=== PATIENT | male | born 1965 | race Caucasian/White ===

== ENCOUNTER 2025-03-14 14:30 | Inpatient (IN) | payer BC, SELFPAY ==
[2025-03-14] VITALS (17 sets, daily range): BP systolic 103–162; BP diastolic 11–127; BMI 36.6; BMI 33.9
--- NOTE | 2025-03-14 10:38 | ED.GENMED ---
History of Present Illness
General
Chief Complaint: Breathing Problem
Time Seen by Provider: 03/14/25 10:37
History of Present Illness
History of Present Illness:
TIME OF INITIAL ENCOUNTER: 10:40 AM
HPI: The patient has been having cough as well as increasing shortness of breath over the last several days. Of note the patient is found to be in rapid A-fib. He states he is no longer on any medication including no anticoagulation�he took
himself off of medications about 4 years ago. He states that he goes in and out of atrial fibrillation. He also has a chest pressure sensation.
EXAM:
GENERAL: Well appearing in no distress
HEENT: Moist oral mucosa
CARDIOVASCULAR: No murmurs, tachycardic heart rate, irregular rhythm, No chest wall tenderness
PULMONARY: No respiratory distress, breath sounds are equally diminished
ABDOMEN: Soft with no peritoneal signs, no tenderness
NEUROLOGIC: Excellent strength all extremities, no coordination deficits
PSYCHIATRIC: Appropriate mental status, normal insight and judgement
EXTREMITIES: Nontender, mild bilateral lower extremity edema, moves all extremities equally
SKIN: Extensive sunburn noted to the left lower extremity
NUMBER AND COMPLEXITY OF PROBLEMS ADDRESSED AT THE ENCOUNTER
� Chronic conditions affecting care: Has had PE, high blood pressure, hyperlipidemia, diabetes, paroxysmal A-fib
� Acute Exacerbation and/or Progression of Chronic Illness: This is an acute problem
� Differential Diagnosis includes: PE, rapid A-fib, viral syndrome, bronchitis, pneumonia
AMOUNT AND/OR COMPLEXITY OF DATA TO BE REVIEWED AND ANALYZED
� I performed an independent evaluation of and my interpretation is:
EKG: A-fib with ventricular rate of 173, nonspecific ST abnormality, on 11/18/2021 the patient was in sinus rhythm
CT: I personally viewed CT imaging and see bilateral pleural effusions which are relatively small, no PE
X-rays:
Laboratory Studies: CBC unremarkable, chemistries unremarkable however glucose is 217 and total bili is 2.0, troponin 0.025 (higher than prior), BNP 2490 (in 2020 was 186)
Other:
� Review of other/old records: I reviewed records, the patient was admitted with multiple subsegmental PE
� Clinical information was obtained by an independent historian: None needed
� Prescriptions/Medications Considered but not given:
� Further testing considered but not performed:
RISK OF COMPLICATIONS AND/OR MORBIDITY OR MORTALITY OF PATIENT MANAGEMENT
� Social determinants of health affecting care: Lives at home with patient presents with cough or shortness of breath
� Discussion with other providers: Dr. Gee for admission
� Escalation of care including admission/observation vs risk of discharge considered: The patient presents with cough, shortness of breath, and chest tightness. He is found to be in rapid A-fib. He has history of paroxysmal
A-fib as well as PE but no longer on anticoagulation as he took himself off of all medications about 4 years ago. His heart rate initially was in the 170s�she was placed on Cardizem bolus and drip.
ANY OTHER UPDATES:
Patient arrives in rapid A-fib and despite escalating doses of Cardizem, heart rate still remains elevated in the 130s to 140s range. He is otherwise hemodynamically stable with systolics that have remained somewhat hypertensive. BNP is newly
elevated and troponin although normal is higher than prior. [place].
Past History
Past History
ED Past Medical History: HTN, Hypercholesterolemia, NIDDM, Other (Glaucoma), Other (PE) and Other (Hypertension hyperlipidemia glaucoma, chronic back pain, diabetes, DVT)
ED Past Surgical History: Bowel resection
Social History
Tobacco: Non-smoker
Alcohol: Occasional
Drug: None
Personal:
Living: with family
Family History
Family History: Other (Diabetes, glaucoma, prostate cancer, CABG)
Phy Exam
Physical Exam
Physical Exam:
See HPI
Scores
Heart Failure Risk
Heart Failure Risk Score: Not Applicable
Course
Orders/Labs/Results
Orders:
Orders
03/14/25 10:13
Electrocardiogram (*1) Urgent
Reason for Study: Shortness of Breath
03/14/25 10:16
EKG- Treatment ONCE
03/14/25 10:21
COVID-19 Antigen Urgent
Source: Nasal Swab
Complete Blood Count/With Diff Urgent
Comprehensive Metabolic Panel Urgent
Influenza A+B Rapid Molecular Urgent
SE Source: Nasal Swab
Specimen Description:
03/14/25 10:42
CT Chest PE Study Urgent
Comment:
Reason For Exam: sob prior pe
Diltiazem HCl [Cardizem] 10 mg IV NOW STA
03/14/25 10:45
Diltiazem 125 mg/125 ml Nss [Cardizem] 125 mg in 125 ml IV PER PROTOCOL
Initial dose in mg/hr, then titrate:: 5
Titrate to keep:: Heart rate 80-100 bpm
Titrate by mg/hr:: 5 mg/hr
Frequency of titrations (minutes):: 15
Maximum dose in mg/hr:: 15
03/14/25 10:49
NT-proBNP Urgent
Troponin I Urgent
03/14/25 12:31
Furosemide [Lasix] 40 mg IV NOW STA
Abnormal Lab Results
03/14/25
10:21
Lymphocytes % 18.3 L %
(20.5-51.1)
Glucose 217 H mg/dl
(70-99)
Total Bilirubin 2.0 H mg/dl
(0.2-1.3)
03/14/25 10:21
03/14/25 10:21
Vital Signs
Initial and Last Documented VS:
Initial Vital Signs
Temp Pulse Resp BP Pulse Ox
37.0 C 55 18 162/11 98
03/14/25 10:11 03/14/25 10:11 03/14/25 10:11 03/14/25 10:11 03/14/25 10:11
Last Documented Vital Signs
Temp Pulse Resp BP Pulse Ox
37.0 C 135 28 141/127 98
03/14/25 10:11 03/14/25 12:15 03/14/25 12:15 03/14/25 12:00 03/14/25 10:11
*Critical Care Note
Total Time (30-74mins, 75-104mins- exclusive of procedures): Not Applicable
ED Attending Note
-
Portions of this chart may have been created with voice recognition software.� Occasional wrong word or��sound alike� substitutions may have occurred due to the inherent limitations of voice recognition software.
Discharge Plan
Departure
Patient Disposition: Admit
Date of Disposition: 03/14/25
Time of Disposition: 13:00
Presentation/result/management discussed w/ accepting MD/DO: Hospitalist
Patient with high blood pressure during this ER visit?: Yes
Discharge Problem:
Congestive heart failure
Prescriptions:
No Action
latanoprost 1 DROP drops
1 drp OPHTHALMIC HS
atorvastatin 40 MG tablet
40 mg PO QPM
metformin 500 MG tablet
500 mg PO BID
oxycodone-acetaminophen [Percocet] 1 EACH tablet
1 ea PO Q8
baclofen 10 MG tablet
10 mg PO BID
gabapentin 300 MG capsule
300 mg PO HS
timolol [Betimol] 5 ML drops
5 ml OP BID
losartan-hydrochlorothiazide 1 EACH tablet
1 ea PO DAILY
fenofibrate nanocrystallized 145 MG tablet
145 mg PO DAILY
esomeprazole magnesium [Nexium] 20 MG capsule,delayed release(DR/EC)
20 mg PO DAILY Qty: 20 0RF
rivaroxaban [Xarelto DVT-PE Treat 30d Start] 1 EACH tablets,dose pack
1 tab PO DIRECTED 30 Days Qty: 1 0RF
Rx Instructions:
15 mg oral twice per day x 3 weeks then
20 mg oral daily beginning week 4
Referrals:
UNKNOWN - PT DOES,NOT KNOW [Family Provider] -
Interventions
Interventions:
*Risk Screen - Suicide Last Done: 03/14/25 10:11
*General Assessment Last Done: 03/14/25 10:11
ED- Cardiac Assessment Last Done: 03/14/25 10:45
ED- Pulmonary Assessment Last Done: 03/14/25 10:45
Discharge Date and Time
Print Language: ICELANDIC
[2025-03-14 10:45] LABS: % Basophils 0.4 % (0-2); % Eosinophils 0.7 % (0-6); % Immature Granulocytes 0.4 % (0-0.5); % Lymphocytes 18.3 % (20.5-51.1); % Neutrophils 73.2 % (42.2-75.2); Absolute Eosinophils 0.1 10^3/uL (0-0.7); Absolute Lymphocytes 1.6 10^3/uL (1.2-3.4); Absolute Monocytes 0.6 10^3/uL (0.1-0.6); Absolute Neutrophils 6.5 10^3/uL (1.4-6.5); Hematocrit 45.8 % (39.0-52.0); Hemoglobin 15.6 g/dL (13.0-18.0); Mean Corp Hgb Conc. 34.1 g/dL (33.0-37.0); Mean Corpuscular Hgb 29.4 pg (27.0-31.0); Mean Corpuscular Volume 86.3 fL (80.0-94.0); Mean Platelet Volume 9.1 fL (7.4-10.4); Nucleated Red Blood Cells % 0 % (-); Platelet Count 268 10^3/uL (130-400); Red Blood Cell Count 5.31 10^6/uL (4.70-6.10); White Blood Cell Count 8.9 10^3/uL (4.8-10.8)
[2025-03-14] MEDS: CARDIZEM 10 MG IV (10:50)
[2025-03-14] MEDS: CARDIZEM 125 IV ×2 (10:53→20:05)
[2025-03-14 10:56] LABS: ALT (SGPT) 23 U/L (0-50); AST (SGOT) 19 U/L (17-59); Albumin 4.5 g/dl (3.5-5.0); Alkaline Phosphatase 60 U/L (38-126); Blood Urea Nitrogen 13 mg/dl (9-20); Calcium 9.8 mg/dl (8.4-10.2); Carbon Dioxide 26 mmol/L (22-30); Chloride 105 mmol/L (98-107); Estimated Creatinine Clearance 89 ml/min; Glucose 217 mg/dl (70-99); Potassium 4.2 mmol/L (3.5-5.1); Sodium 142 mmol/L (135-145); Total Protein 7.2 g/dl (6.3-8.2); eGFR > 60.00
[2025-03-14 11:00] LABS: COVID-19 Antigen Negative (Negative)
[2025-03-14 11:21] LABS: NT-proBNP 2490 pg/ml; Troponin I 0.025 ng/ml
[2025-03-14] MEDS: LASIX 40 MG IV ×2 (12:46→17:47)
--- NOTE | 2025-03-14 13:07 | HPS.HSE ---
Family Physician
-
Family Physician: NOT KNOW UNKNOWN - PT DOES
Chief Complaint
-
SoB , chest pressure
History of Present Illness
HPI
4M HX PE, DVT, non compliance with meds and Drs follow up, T2DM, HTN, HLD, chr back pain, HX BW resection pw increasing shortness of breath over the last several days.
- at ER, patient is found to be in rapid A-fib.
- He states he is no longer on any medication including no anticoagulation
- he took himself off of medications about 4 years ago.
- He states that he goes in and out of atrial fibrillation.
- He also has a chest pressure sensation.
ERTX
IV lasix 40
IV Diltiazem 10mg now then Diltiazem gtt
Medical History
Past Medical History
Past Medical History: Reports Arrhythmia (in and out of AF per patient ), HTN, Hypercholesterolemia, NIDDM and Other (DVT/PE )
Additional Past Medical History:
HX suggestive of non compliance with Meds and Drs follow up
Past Surgical History: Reports Bowel Resection
Social History
Tobacco: Non-smoker
Alcohol: None
Family History
Family History: Not pertinent
Allergies / Home Medications
Allergies reflects when Allergies were last updated in [employer].
Home Medications with original date entered in [employer]
Allergy/Medication List:
Allergies
Allergy/AdvReac Type Severity Reaction Status Date / Time
No Known Allergies Allergy Verified 10/27/22 07:09
Home Medications
atorvastatin 40 mg tablet 40 mg PO QPM High cholesterol 06/18/19
baclofen 10 mg tablet 10 mg PO BID Muscle spasms 06/18/19
esomeprazole magnesium 20 mg capsule,delayed release (Nexium) 20 mg PO DAILY ##20 06/18/19
fenofibrate nanocrystallized 145 mg tablet 145 mg PO DAILY High cholesterol 06/18/19
gabapentin 300 mg capsule 300 mg PO HS Neurological Condition 06/18/19
latanoprost 0.005 % eye drops 1 drp OPHTHALMIC HS Eye condition 06/18/19
losartan 50 mg-hydrochlorothiazide 12.5 mg tablet 1 ea PO DAILY Blood pressure 06/18/19
metformin 500 mg tablet 500 mg PO BID Diabetes 06/18/19
oxycodone-acetaminophen 10 mg-325 mg tablet (Percocet) 1 ea PO Q8 Pain 06/18/19
timolol 0.25 % eye drops (Betimol) 5 ml OP BID Eye condition 06/18/19
rivaroxaban 15 mg (42)-20 mg (9) tablets in a starter pack (Xarelto DVT-PE Treatment 30-Day Starter) 1 tab PO DIRECTED 30 days ##1 05/16/20
If medication reconciliation has not been performed, why?: Other (pending to reconcile )
Review of Systems
-
Constitutional: Reports No Symptoms
EENT: Reports No Symptoms
Respiratory: Reports See HPI and Trouble Breathing
Cardiac: Reports No Symptoms
Abdomen/GI: Reports No Symptoms
: Reports No Symptoms
Musculoskeletal: Reports No Symptoms
Skin: Reports No Symptoms
Neurological: Reports No Symptoms
Endocrine: Reports No Symptoms
Hematologic/Lymphatic: Reports No Symptoms
Psych: Reports No Symptoms
Physical Exam
Vital Signs
Vital Signs
Temp Pulse Resp BP Pulse Ox
98.6 F 135 28 141/127 98
03/14/25 10:11 03/14/25 12:15 03/14/25 12:15 03/14/25 12:00 03/14/25 10:11
Physical Exam
General: Well Developed, Well Nourished and No Apparent Distress
HEENT: NormoCephalic, Moist mucous membranes and Atraumatic
Respiratory: Clear
Cardiac: S1/S2 and Regular Rhythm; No Murmur or Rub
GI: Soft, Non Tender, Non Distended and Normal Bowel Sounds; No Organomegaly
Rectal: Deferred by Provider
Musculoskeletal: No Clubbing, No Cyanosis and No Edema
Skin: Rash (well demarcated non tender, normal temp, rash at [employer] and [employer])
Neuro: Nonfocal/grossly intact
Laboratory Results
-
03/14/25 10:21
03/14/25 10:21
Laboratory Results
Total Bilirubin 2.0 mg/dl (0.2-1.3) H 03/14/25 10:21
AST 19 U/L (17-59) 03/14/25 10:21
ALT 23 U/L (0-50) 03/14/25 10:21
Alkaline Phosphatase 60 U/L (38-126) 03/14/25 10:21
Troponin I 0.025 ng/ml 03/14/25 10:49
Data Reviewed
-
Lab Data: Labs Reviewed by me
Old Records: Reviewed
Impression/Plan
-
Vital Signs
Temp Pulse Resp BP Pulse Ox
98.6 F 135 28 141/127 98
03/14/25 10:11 03/14/25 12:15 03/14/25 12:15 03/14/25 12:00 03/14/25 10:11
Data
nl CBC
nl BMP
BG 217
TB 2
TPNI 0.025
BNP 2490
EKG
ATRIAL FIBRILLATION WITH RAPID VENTRICULAR RESPONSE
SEPTAL INFARCT (CITED ON OR BEFORE 18-JUN-2019)
ABNORMAL ECG
WHEN COMPARED WITH ECG OF 18-NOV-2021 14:27,
ATRIAL FIBRILLATION HAS REPLACED SINUS RHYTHM
VENT. RATE HAS INCREASED BY 92 BPM
NONSPECIFIC T WAVE ABNORMALITY NOW EVIDENT IN LATERAL LEADS
Confirmed by MD IBAN, DIONNA Mckeon ([id number]) on 03/14/2025 11:20:09 AM
03/14/25 CT Chest PE Study
1. Negative for pulmonary embolism.
2. Cardiomegaly and moderate CHF with very small bilateral pleural effusions.
05/15/20 TTE
Normal left ventricular systolic function.
Left ventricular ejection fraction is 55-60% Normal regional wall motion.
Trace tricuspid regurgitation.
Trace mitral regurgitation.
Dilated IVC
Estimated PA pressure 35mmHg.
No prior study available for comparison.
Last hospitalist admission: 05/14/2020 - 05/16/2020
ASSESSMENT & PLAN
Pending Rx reconciliation
Acute HF
CT suggest CHF
prior LVEF 55-60 % suspect HFpEF
- Rate control of FAF with diltiazem gtt
- IV Lasix 40 daily
- Daily - Wt, IOs, BMP
- ECHO in AM
- CBC card consult
Fast AF - presumed new onset
Reports in and out of A Fib of uncertain chronicity
No prior EKG evidence of A Fib
Preserved LVEF
Prior HX Xarelto for PE
- HX suggestive of nonadherence to Meds and f/u
- rate control with Diltiazem gtt
- Card to evaluate for OAC ( risks vs benefits)
Borderline abnormal TPNI - suspect NIMI
- Trend TPNI
- c/w STUDENT DEVELOPMENT SPECIALIST Statin
NEG CTC evidence of acute PE
HX PE/DVT
Sun burn at [employer] and [employer]- unlikely cellulitis
- well demarcated rash at [employer] and [employer] being in the Sun with cross legs - non tender, not hot on palpation
Benign HTN
- resume Losartan
- Observe BP
DMT2
nl RFts
- resume metformin
- add ISS low
- f/u A1C
HLD
- resume Atorvastatin and an fenofibrate
Morbid obesity ( BMI 36)
affects all aspects of life
Chr LBP
- resume Gabapentin 300mg HS
- resume Percocet PRN
DVT Px: LMWH
Full code
IP TLM
--- NOTE | 2025-03-14 13:30 | CON.CAR ---
Addendum entered and electronically signed by Jose De Jesus Almaraz MD 03/14/25 15:27:
I saw and examined the patient.
The GASOLINE TRACTOR OPERATOR's note was reviewed and I agree with the note.
Comment: 60 year old male with NIDDM, unprovoked DVT (2012, 2016), unprovoked PE (2019), HTN, HLD, and one episode of atrial fibrillation while in a medically induced coma presented with shortness of breath. He has had progressive cough and what
sounds like PND; as well as abdominal bloating/distension. He was found to be in AF RVR.
- IV diuresis
- Dilt gtt
- Echo tomorrow
Original Note:
Consultation
Consultation Request
Date/Time Consultation Requested: 03/14/2025 13:05
Date/Time Consultation Performed: 03/14/2025 13:30
Requesting Provider: Dr. Gee
Performing Provider: GIL Lehman for Dr. Almaraz
Reason for Consultation: Atrial fibrillation with rapid ventricular response
Medical History
-
Chief Complaint: Shortness of breath
History of Present Illness:
Rob Luz is a 60 year old male with NIDDM, unprovoked DVT (2012, 2016), unprovoked PE (2019), HTN, HLD, and one episode of atrial fibrillation while in a medically induced coma presented with shortness of breath. For approximately 2 weeks he has
had worsening cough. Over the last several days he started having shortness of breath. His cough and breathing is worse lying flat. He denies PND. Imaging with small bilateral pleural effusions. He does not think he has recently gained any
weight. No significant lower extremity edema. He self discontinued his medications approximately 4 years ago. He was found to be in atrial fibrillation with rapid ventricular response. He was started on a diltiazem drip. He was given furosemide
40 mg IV. He is not having any chest pain.
Past Medical History
Past Medical History: Arrhythmias (paroxysmal atrial fibrillation [single episode]), HTN, Hypercholesterolemia, NIDDM and Other (PE)
Past Surgical History: Bowel Resection and Orthopedic
Social History
Tobacco: Non-Smoker
Alcohol: Occasional
Drug: None
Personal:
Living: With Family
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
Family History
Family History: Early CAD (Father with CABG ~55)
Allergies / Home Medications
Allergy/AdvReac Type Severity Reaction Status Date / Time
No Known Allergies Allergy Verified 10/27/22 07:09
�Medication �Instructions �Recorded �Confirmed �Type
atorvastatin 40 mg tablet 40 mg PO QPM High cholesterol 06/18/19 05/13/20 History
baclofen 10 mg tablet 10 mg PO BID Muscle spasms 06/18/19 05/13/20 History
esomeprazole magnesium 20 mg 20 mg PO DAILY ##20 06/18/19 05/13/20 Rx
capsule,delayed release (Nexium)
fenofibrate nanocrystallized 145 145 mg PO DAILY High cholesterol 06/18/19 05/13/20 History
mg tablet
gabapentin 300 mg capsule 300 mg PO HS Neurological Condition 06/18/19 05/13/20 History
latanoprost 0.005 % eye drops 1 drp OPHTHALMIC HS Eye condition 06/18/19 05/13/20 History
losartan 50 mg-hydrochlorothiazide 1 ea PO DAILY Blood pressure 06/18/19 05/13/20 History
12.5 mg tablet
metformin 500 mg tablet 500 mg PO BID Diabetes 06/18/19 05/13/20 History
oxycodone-acetaminophen 10 mg-325 1 ea PO Q8 Pain 06/18/19 05/13/20 History
mg tablet (Percocet)
timolol 0.25 % eye drops (Betimol) 5 ml OP BID Eye condition 06/18/19 05/13/20 History
rivaroxaban 15 mg (42)-20 mg (9) 1 tab PO DIRECTED 30 days ##1 05/16/20 Rx
tablets in a starter pack (Xarelto
DVT-PE Treatment 30-Day Starter)
Review of Systems
-
History Source: Patient
All other systems: Negative unless noted
Constitutional: Fatigue
EENT: No Symptoms
Respiratory: Trouble Breathing
Cardiac: No Symptoms
Abdomen/GI: No Symptoms
: No Symptoms
Musculoskeletal: No Symptoms
Skin: No Symptoms
Neurological: No Symptoms
Endocrine: No Symptoms
Hematologic/Lymphatic: No Symptoms
Physical Exam
Vital Signs
Temp Pulse Resp BP Pulse Ox
98.6 F 135 23 140/96 98
03/14/25 10:11 03/14/25 13:15 03/14/25 13:15 03/14/25 13:00 03/14/25 10:11
Lab Results
03/14/25 10:21
03/14/25 10:21
Troponin I 0.025 ng/ml 03/14/25 10:49
Tmu-Z-Wjwnuswxmwx Pept 2490 pg/ml 03/14/25 10:49
Physical Exam
General: Well Developed, Well Nourished, No Apparent Distress and Comfortable
HEENT: Normocephalic, Anicteric and Moist Mucous Membranes
Respiratory: Clear and Non Labored Respirations
Cardiac: S1/S2 and Irregular Rhythm
Breast: Deferred by me
GI: Soft, Non Tender, Non Distended and Normal Bowel Sounds
Rectal: Deferred by Provider
Genito-urinary: No Costovertebral Tender
Musculoskeletal: No Clubbing and No Cyanosis
Skin: Warm and Dry
Neuro: AO x 3
Hematologic/Lymphatic: No Lymphadenopathy
Psych: Calm
Impression / Plan
-
I/P: 60M with NIDDM, unprovoked DVT (2012, 2016), unprovoked PE (2019), HTN, HLD, and one episode of atrial fibrillation while in a medically induced coma presented with shortness of breath. He was found to be in acute heart failure and in atrial
fibrillation with RVR.
Outpatient extended day teacher: None
Heart failure, type unknown, acute
- Severe requiring admission and management
- Orthopnea, cough, and shortness of breath
- Diuresis with furosemide 40mg IV BID
- Trend daily weight, I/O, and BMP with diuresis
- Echocardiogram when rates are better controlled
- HF education
Atrial fibrillation with rapid ventricular response
- Start Cardizem gtt for rate control
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
- [id number]: score at least 3 (Heart failure, HTN, Diabetes Mellitus)
NIDDM
- With hyperglycemia, self discontinued medications
- Hgba1c 8.1%, consider diabetic education
Hypercholesterolemia
- Fasting lipid panel in a.m.
- Goal LDL <70 given his type 2 diabetes
Prior DVTs, unprovoked (2012, 2016)
Prior PE (2019), self discontinued anticoagulation
Obesity, BMI 36, he would benefit from weight loss
Data Reviewed
-
EKG: Report Reviewed by me (Atrial fibrillation with right ventricular response, rate 173)
Radiology: Report Reviewed by me (CXR: Cardiomegaly and moderate CHF with very small bilateral pleural effusions.)
Labs: Labs Reviewed by me
Old Records: Reviewed
[2025-03-14 15:08] LABS: Glycohemoglobin (HgbA1c) 8.1 % (4.0-5.6)
[2025-03-14] MEDS: LIPITOR 40 MG PO (17:48)
[2025-03-14] MEDS: FLUSH (NSS) 1 FLUSH IV (17:49)
[2025-03-14 17:54] LABS: Glucose - Point of Care 220 mg/dl (70-99)
--- NOTE | 2025-03-14 17:55 | PTCARENOTE ---
patient arrived from ER, ht. and weight completed, oriented to room and surroundings. monitor shows Afib, HR 130's, BP 131/91, denies SOB, cp. lung bowen clear on RA, o2 sat 95%. IV Cardizem @ 15cc/hr via left hand. INT in right ant. flushes well.
patient has trace edema bilat. LE, he has sunburn on left leg. patient c/o headache, Tylenol po given as ordered. BS obtained 220, notified patient that his hgaic was 8.1 and that while he was in the hospital he will be covered with insulin if
needed. CHF folder given to patient, very receptive to learning.
[2025-03-14] MEDS: NOVOLOG FLEXPEN-LOW RESISTANCE 2 UNITS SC (18:20)
[2025-03-14 18:37] LABS: Troponin I 0.027 ng/ml
[2025-03-14] MEDS: ELIQUIS 5 MG PO (19:51)
[2025-03-14] MEDS: TIMOPTIC 0.25% OPHTHALMIC SOLUTION 1 DROP BOTH EYES (19:59)
[2025-03-14 22:33] LABS: Glucose - Point of Care 165 mg/dl (70-99)
[2025-03-14] MEDS: XALATAN OPHTHALMIC SOLUTION 1 DROP BOTH EYES (22:58)
[2025-03-15] VITALS (13 sets, daily range): BP systolic 102–144; BP diastolic 61–95; BMI 33.7
[2025-03-15 01:49] LABS: Troponin I 0.027 ng/ml
[2025-03-15] MEDS: CARDIZEM 125 IV ×2 (03:06→13:55)
[2025-03-15 04:17] LABS: % Basophils 0.8 % (0-2); % Eosinophils 2.2 % (0-6); % Immature Granulocytes 0.3 % (0-0.5); % Lymphocytes 25.3 % (20.5-51.1); % Monocytes 7.7 % (1.7-9.3); % Neutrophils 63.7 % (42.2-75.2); Absolute Basophils 0.1 10^3/uL (0-0.2); Absolute Eosinophils 0.2 10^3/uL (0-0.7); Absolute Lymphocytes 1.8 10^3/uL (1.2-3.4); Absolute Monocytes 0.6 10^3/uL (0.1-0.6); Absolute Neutrophils 4.6 10^3/uL (1.4-6.5); Hematocrit 43.5 % (39.0-52.0); Hemoglobin 14.8 g/dL (13.0-18.0); Mean Corpuscular Hgb 29.3 pg (27.0-31.0); Mean Corpuscular Volume 86.1 fL (80.0-94.0); Mean Platelet Volume 9.1 fL (7.4-10.4); Nucleated Red Blood Cells % 0 % (-); Platelet Count 264 10^3/uL (130-400); Red Blood Cell Count 5.05 10^6/uL (4.70-6.10); Red Cell Dist. Width 13.2 % (11.5-14.5); White Blood Cell Count 7.3 10^3/uL (4.8-10.8)
[2025-03-15 04:49] LABS: ALT (SGPT) 22 U/L (0-50); AST (SGOT) 20 U/L (17-59); Albumin 4.1 g/dl (3.5-5.0); Alkaline Phosphatase 59 U/L (38-126); Blood Urea Nitrogen 16 mg/dl (9-20); Calcium 9.4 mg/dl (8.4-10.2); Carbon Dioxide 26 mmol/L (22-30); Chloride 109 mmol/L (98-107); Direct Bilirubin 0.3 mg/dl (0.0-0.4); Estimated Creatinine Clearance 101 ml/min; Glucose 174 mg/dl (70-99); HDL Cholesterol 42 mg/dl; LDL Cholesterol, Calculated 123 mg/dl; Potassium 3.9 mmol/L (3.5-5.1); Sodium 143 mmol/L (135-145); Total Bilirubin 1.8 mg/dl (0.2-1.3); Total Cholesterol 192 mg/dl (50-199); Total Protein 6.6 g/dl (6.3-8.2); Triglyceride 139 mg/dl (10-149); Very Low Density Lipoprotein 27 mg/dl (0-30); eGFR > 60.00
--- NOTE | 2025-03-15 06:36 | PTCARENOTE ---
Pt remained Afib on the monitor throughout night, HR 90-110's with drops to 75's this morning , Cardizem gtt decreased to 10mg/hr. BP stable. Denies pain or SOB.
[2025-03-15 06:39] LABS: Glucose - Point of Care 180 mg/dl (70-99)
[2025-03-15] MEDS: ELIQUIS 5 MG PO ×2 (08:38→19:32)
[2025-03-15] MEDS: LASIX 40 MG IV ×2 (08:39→15:51)
[2025-03-15] MEDS: FLUSH (NSS) 1 FLUSH IV (08:41)
[2025-03-15] MEDS: TIMOPTIC 0.25% OPHTHALMIC SOLUTION 1 DROP BOTH EYES ×2 (08:47→19:32)
[2025-03-15] MEDS: TYLENOL 650 MG PO ×2 (08:48→19:37)
[2025-03-15] MEDS: NOVOLOG FLEXPEN-LOW RESISTANCE 1 UNITS SC ×3 (08:59→18:02)
--- NOTE | 2025-03-15 09:49 | W.PN.CD ---
Addendum entered and electronically signed by Dwayne Porras MD 03/15/25 10:44:
I saw and examined the patient.
The FURNACE FIRER's note was reviewed and I agree with the note.
Comment: He is feeling much better. He can lie flat without any shortness of breath. He is motivated to take medications moving forward. On exam, he is obese, body habitus and winn obstructs her JVP evaluation, lungs are clear to auscultation
bilaterally. Regular irregular rate and irregular rhythm. He is rate controlled. No murmurs gallops were appreciated abdomen is obese, no lower extremity edema. Telemetry shows rate controlled A-fib. Will Continue with diuresis. He has no
orthostatic symptoms. Echocardiogram was done at the bedside and await results. Depending on echocardiogram results, would tentatively plan for MAGDALENO cardioversion tomorrow. GDMT will be initiated based on echocardiogram result.
Original Note:
Today's Communication / Plan
-
Echocardiogram
Start metoprolol succinate and anticipate stopping diltiazem gtt
Impression / Plan
-
I/P: 60M with NIDDM, unprovoked DVT (2012, 2016), unprovoked PE (2019), HTN, HLD, and one episode of atrial fibrillation while in a medically induced coma presented with shortness of breath. He was found to be in acute heart failure and in atrial
fibrillation with RVR.
Outpatient carpenter maintenance: None, will be Dr. Almaraz
Heart failure, type unknown, acute
- Severe requiring admission and management
- Orthopnea, cough, and shortness of breath - improving
- Diuresis with furosemide 40mg IV BID, this requires intensive monitoring
- Trend daily weight, I/O, and BMP with diuresis - goal weight to be determined
- Start Farxiga 10mg daily
- Echocardiogram today
- HF education
Atrial fibrillation with rapid ventricular response
- Rate controlled on diltiazem gtt, transition to metoprolol succinate
- Consider MAGDALENO guided DCCV in am if echocardiogram is stable
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
- [id number]: score at least 3 (Heart failure, HTN, Diabetes Mellitus)
NIDDM
- With hyperglycemia, self discontinued medications
- Hgba1c 8.1%, diabetic education
Hypercholesterolemia
- TC 192, LDL 123, HDL 42, TG 139 - started on atorvastatin 40mg, fasting lipid panel in 8-12 weeks
- Goal LDL <70 given his type 2 diabetes
Prior DVTs, unprovoked (2012, 2016)
Prior PE (2019), self discontinued anticoagulation
Obesity, BMI 33, he would benefit from weight loss
SUBJECTIVE:
Orthopnea improved. Breathing is better.
Physical Exam
Vital Signs/Labs
Vital Signs
Temp Pulse Resp BP Pulse Ox
98.4 F 82 18 103/85 97
03/15/25 06:39 03/15/25 08:39 03/15/25 06:39 03/15/25 08:39 03/15/25 06:39
03/14/25 03/15/25 03/16/25
06:59 06:59 06:59
Actual Weight 103.3 kg
03/15/25 03:19
03/15/25 03:19
Triglycerides 139 mg/dl (10-149) 03/15/25 03:19
LDL Cholesterol, Calc 123 mg/dl 03/15/25 03:19
VLDL Cholesterol, Calc 27 mg/dl (0-30) 03/15/25 03:19
HDL Cholesterol 42 mg/dl 03/15/25 03:19
03/14/25
10:49
Yqu-B-Edfvhenjupu Pept 2490
LAB Results
03/14/25 03/14/25 03/15/25
10:49 18:01 01:15
Troponin I 0.025 0.027 0.027
Physical Exam
Constitutional: No acute distress and Comfortable
EENT: Anicteric and Moist mucous membranes
Cardiovascular: Pedal edema is absent, Rhythm/rate is irregular and S1S2 is normal
Respiratory: Respiratory effort normal and Lungs clear to auscul.
GI: Soft, Distention absent, Flat, Non tender and Normal bowel sounds
Neuro/Psych: AO x 3
Other: Skin (warm and dry)
Data Reviewed
-
Date of Service: March 15, 2025
Labs: Labs Reviewed by me
--- NOTE | 2025-03-15 09:54 | CARDSERVLU ---
Echocardiogram with Lumason completed after protocol screening completed. Allergies verified.
Patent IV site: _Left arm 18 G PC site clear____
IV site flushed with 0.9% NaCl pre and post administration.
Diluted bolus method utilized to enhance visualization of ventricular land.
Total volume given: _5___ mL
Patient tolerated all procedures well without complications.
--- NOTE | 2025-03-15 09:58 | CM ---
Addendum entered by Breana Cardona RN 03/16/25 14:27:
Placed copay cards in the patient's red discharge folder.
Addendum entered by Breana Cardona RN 03/15/25 12:02:
Patient is agreeable to cost
Addendum entered by Breana Cardona RN 03/15/25 10:09:
Entresto 24-26mg BID for a 30 day>$40
Original Note:
Pricing on the following medications under the patient's [facility], ID # [id number],
Farxiga 10 mg daily for a 30 day> $16
Jardiance 10mg daily for a 30 day> $16
Eliquis 5mg BID for a 30 day> $16
Xarelto 20 mg daily for a $30 day> $16
Pradaxa 150mg BID for a 30 day $16
--- NOTE | 2025-03-15 10:00 | PTCARENOTE ---
Received pt in AM resting in bed. A fib on the monitor. HR in the 80's. Cardizem gtt infusing at 10cc/hr. Denies chest pain or SOB, however c/o headache pain 03/12. PRN Tylenol given. Reassessed pain level still 03/12. Pt reports this an acceptable
level of pain. Informed pt to use urinal for accurate I&O. Call butts within reach.
[2025-03-15 10:49] LABS: Glucose - Point of Care 199 mg/dl (70-99)
[2025-03-15] MEDS: FARXIGA 10 MG PO (10:51)
[2025-03-15] MEDS: TOPROL XL 25 MG PO ×2 (10:51→19:32)
--- NOTE | 2025-03-15 11:36 | W.PN.HOSP.TC ---
Today's Communication/Plan
-
see a/p
Assessment / Plan
Assessment / Plan
Physical Exam
General: no acute distress, appears comfortable at this time
HEENT: NormoCephalic, Moist mucous membranes and Atraumatic
Respiratory: Bibasilar crackles
Cardiac: S1/S2 and Regular Rhythm; No Murmur or Rub
GI: Soft, Non Tender, Non Distended and Normal Bowel Sounds; No Organomegaly
Musculoskeletal: No Clubbing, No Cyanosis and No Edema
Neuro: AOx3 conversant coherent
Psych: Calm
60M HX PE, DVT, non compliance with meds (took himself off medications including DOAC 4y ago) and follow up with primary care, T2DM, HTN, HLD, chr back pain, HX BW resection pw increasing shortness of breath over the last several days found to be in
rapid A-fib, hx pAfib.
Acute HFrEF
CT suggest CHF
prior LVEF 55-60 % suspect HFpEF
- IV Lasix 40 BID as per Cardio
- Daily - Wt, IOs, BMP
- ECHO appreciated EF 35-40% worse from prior ECHO 05/2020 EF 55-60% then
- CBC card consult appreciated npo after midnight for MAGDALENO cardioversion, started on Farxiga and Metoprolol
-Troponin wnl x3
-BNP 2490
Fast AF - presumed new onset
Reports in and out of A Fib of uncertain chronicity
No prior EKG evidence of A Fib
Preserved LVEF
Prior HX Xarelto for PE
- HX nonadherence to Meds and f/u
- rate control with Diltiazem gtt, cont as per cardio
- Cardio eval appreciated started on Eliquis
NEG CT evidence of acute PE
HX PE/DVT
Benign HTN
- resume Losartan
-Metoprolol and Lasix as above
- monitor and titrate antihypertensive regimen as necessary
DMT2
- sliding scale
- A1C 8.1
HLD
- cont statin
Morbid obesity ( BMI 30s)
affects all aspects of life
Chr LBP
- Tylenol prn
DVT Px: Eliquis
Full code
IP TLM
I spent a total of 50 minutes with the patient or on the floor. More than 50% of this time involved counseling and coordination of care.
Anticipated Discharge: 24 - 48 hours
Subjective/Interval History
-
Date of Service: March 15, 2025
No acute distress sitting up comfortably in bed. Reports significant improvement in symptoms including shortness of breath.
Objective Data
-
Labs:
Laboratory Results
03/15/25
03:19
WBC 7.3
Hgb 14.8
Hct 43.5
Plt Count 264
Sodium 143
Potassium 3.9
Chloride 109 H
Carbon Dioxide 26
BUN 16
Creatinine 0.9
Glucose 174 H
Calcium 9.4
Total Bilirubin 1.8 H
AST 20
ALT 22
Alkaline Phosphatase 59
Vital Signs:
Vital Signs
Temp Pulse Resp BP Pulse Ox
98.4 F 99 18 115/92 95
03/15/25 10:52 03/15/25 11:00 03/15/25 10:52 03/15/25 10:52 03/15/25 10:52
I&O
03/14/25 03/15/25 03/16/25
06:59 06:59 06:59
Intake Total 450 / 450
Output Total 1825 / 1825 400 / 400
Balance -1375 / -1375 -400 / -400
--- NOTE | 2025-03-15 11:55 | CM ---
Chart reviewed. Patient is independent of ADLS, lives with his in a 2 STH, 1st level set up, 2 HAN[facility], 0 DME. Plan is for the patient to return home. CM to follow
[2025-03-15 17:41] LABS: Glucose - Point of Care 166 mg/dl (70-99)
[2025-03-15] MEDS: LIPITOR 40 MG PO (18:02)
[2025-03-15] MEDS: XALATAN OPHTHALMIC SOLUTION 1 DROP BOTH EYES (22:13)
[2025-03-15 22:38] LABS: Glucose - Point of Care 171 mg/dl (70-99)
[2025-03-16] VITALS (8 sets, daily range): BP systolic 99–133; BP diastolic 83–111; BMI 33.1
--- NOTE | 2025-03-16 01:41 | PTCARENOTE ---
Tele monitor remains Afib, HR in the 80-100s at rest.IV cardizem gtt currently infusing at 5ml/hr. Patient aware to remain NPO status at midnight for planned MAGDALENO/CV on 03/16. Denies any chest pain. Patient oriented x4, and can make his needs known.
Call butts within reach.
[2025-03-16 04:00] LABS: Hematocrit 45.3 % (39.0-52.0); Hemoglobin 15.3 g/dL (13.0-18.0); Mean Corp Hgb Conc. 33.8 g/dL (33.0-37.0); Mean Corpuscular Hgb 29.3 pg (27.0-31.0); Mean Corpuscular Volume 86.8 fL (80.0-94.0); Mean Platelet Volume 8.9 fL (7.4-10.4); Platelet Count 281 10^3/uL (130-400); Red Blood Cell Count 5.22 10^6/uL (4.70-6.10); White Blood Cell Count 8.2 10^3/uL (4.8-10.8)
[2025-03-16 04:29] LABS: Blood Urea Nitrogen 20 mg/dl (9-20); Calcium 9.6 mg/dl (8.4-10.2); Carbon Dioxide 24 mmol/L (22-30); Chloride 107 mmol/L (98-107); Estimated Creatinine Clearance 90 ml/min; Glucose 185 mg/dl (70-99); Magnesium 1.9 mg/dl (1.6-2.3); Phosphorus 4.9 mg/dl (2.5-4.5); Potassium 3.7 mmol/L (3.5-5.1); Sodium 144 mmol/L (135-145); eGFR > 60.00
[2025-03-16 08:35] LABS: Glucose - Point of Care 171 mg/dl (70-99)
[2025-03-16] MEDS: ELIQUIS 5 MG PO ×2 (09:15→20:08)
[2025-03-16] MEDS: FARXIGA 10 MG PO (09:15)
--- NOTE | 2025-03-16 09:15 | W.PN.HOSP.TC ---
Today's Communication/Plan
-
see a/p
Assessment / Plan
Assessment / Plan
Physical Exam
General: no acute distress, appears comfortable at this time
HEENT: NormoCephalic, Moist mucous membranes and Atraumatic
Respiratory: Bibasilar crackles
Cardiac: S1/S2 and Regular Rhythm; No Murmur or Rub
GI: Soft, Non Tender, Non Distended and Normal Bowel Sounds; No Organomegaly
Musculoskeletal: No Clubbing, No Cyanosis and No Edema
Neuro: AOx3 conversant coherent
Psych: Calm
60M HX PE, DVT, non compliance with meds (took himself off medications including DOAC 4y ago) and follow up with primary care, T2DM, HTN, HLD, chr back pain, HX BW resection pw increasing shortness of breath over the last several days found to be in
rapid A-fib, hx pAfib.
Acute HFrEF
CT suggest CHF
prior LVEF 55-60 % suspect HFpEF
- IV Lasix 40 BID as per Cardio
- Daily - Wt, IOs, BMP
- ECHO appreciated EF 35-40% worse from prior ECHO 05/2020 EF 55-60% then
- CBC card consult appreciated started on Farxiga Metoprolol Entresto, Cardioversion unfortunately was not successful
-Troponin wnl x3
-BNP 2490
Fast AF - presumed new onset
Reports in and out of A Fib of uncertain chronicity
No prior EKG evidence of A Fib
Preserved LVEF
Prior HX Xarelto for PE
- HX nonadherence to Meds and f/u
- Diltiazem gtt transitioned to metoprolol as per cardio
- Cardio eval appreciated started on Eliquis
NEG CT evidence of acute PE
HX PE/DVT
HTN
- Entresto Metoprolol Lasix
- monitor and titrate antihypertensive regimen as necessary
DMT2
- sliding scale
- A1C 8.1
HLD
- cont statin
Morbid obesity ( BMI 30s)
affects all aspects of life
Chr LBP
- Tylenol prn
DVT Px: Eliquis
Full code
IP TLM
I spent a total of 45 minutes with the patient or on the floor. More than 50% of this time involved counseling and coordination of care.
Anticipated Discharge: 24 - 48 hours
Subjective/Interval History
-
Date of Service: March 16, 2025
no acute distress, reports overall feeling well. unfortunately cardioversion was not successful. Patient's Delfina present during evaluation.
Objective Data
-
Labs:
Laboratory Results
03/16/25
03:34
WBC 8.2
Hgb 15.3
Hct 45.3
Plt Count 281
Sodium 144
Potassium 3.7
Chloride 107
Carbon Dioxide 24
BUN 20
Creatinine 1.0
Glucose 185 H
Calcium 9.6
Vital Signs:
Vital Signs
Temp Pulse Resp BP Pulse Ox
98.4 F 79 20 112/83 94
03/16/25 08:07 03/16/25 06:00 03/16/25 08:07 03/16/25 03:23 03/16/25 08:07
I&O
03/15/25 03/16/25 03/17/25
06:59 06:59 06:59
Intake Total 450 / 450 160 / 160
Output Total 1825 / 1825 2775 / 2775
Balance -1375 / -1375 -2615 / -2615
[2025-03-16] MEDS: NOVOLOG FLEXPEN-LOW RESISTANCE 1 UNITS SC ×3 (09:16→17:20)
[2025-03-16] MEDS: TOPROL XL 25 MG PO (09:16)
[2025-03-16] MEDS: TIMOPTIC 0.25% OPHTHALMIC SOLUTION 1 DROP BOTH EYES ×2 (09:19→20:10)
--- NOTE | 2025-03-16 10:00 | PTCARENOTE ---
Received pt at change of shift resting comfortably in bed. Denies any pain or SOB. Afib on the monitor, HR in the 90's. Cardizem gtt d/c as per ordered. Encouraged pt to use urinal for accurate I&O. Pt verbalized understanding. Call butts within
reach.
--- NOTE | 2025-03-16 10:58 | W.PN.CD ---
Today's Communication / Plan
-
unsuccessful DCCV on 03/16: increase Toprol XL to 50mg bid
add entresto
cont IV lasix
Impression / Plan
-
I/P: 60M with NIDDM, unprovoked DVT (2012, 2016), unprovoked PE (2019), HTN, HLD, and one episode of atrial fibrillation while in a medically induced coma presented with shortness of breath. He was found to be in acute heart failure and in atrial
fibrillation with RVR.
Outpatient deputy sheriff: None, will be Dr. Almaraz
Heart failure, acute HFrEF, EF 35-40%
- Severe requiring admission and management with IV diuresis and close monitoring of labs/tele
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
- optimizing GDMT
-increase Toprol XL to 50mg bid
-add entresto
-continue farxiga
-aldactone: not yet added
-cont IV lasix 40mg bid
-unclear dry weight
Cardiomyopathy
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
- meds as above
-will repeat echo as outpatient in approx 4-6 weeks
-if EF not improved, will discuss cardiac cath for ischemic eval; otherwise, can do nuclear stress
Atrial fibrillation with rapid ventricular response
-unsuccessful DCCV on 03/16: increase Toprol XL to 50mg bid
-can assess for PVI as outpatient; will also need NO evaluation
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
- [id number]: score at least 3 (Heart failure, HTN, Diabetes Mellitus)
Moderate MR
-outpatient f/u
NIDDM
- With hyperglycemia, self discontinued medications
- Hgba1c 8.1%, diabetic education
Hypercholesterolemia
- TC 192, LDL 123, HDL 42, TG 139 - started on atorvastatin 40mg, fasting lipid panel in 8-12 weeks
- Goal LDL <70 given his type 2 diabetes
Prior DVTs, unprovoked (2012, 2016)
Prior PE (2019), self discontinued anticoagulation
Obesity, BMI 33, he would benefit from weight loss
Physical Exam
Vital Signs/Labs
Vital Signs
Temp Pulse Resp BP Pulse Ox
98.4 F 79 20 112/83 94
03/16/25 08:07 03/16/25 06:00 03/16/25 08:07 03/16/25 03:23 03/16/25 08:07
03/15/25 03/16/25 03/17/25
06:59 06:59 06:59
Actual Weight 103.3 kg 101.6 kg
03/16/25 03:34
03/16/25 03:34
Magnesium 1.9 mg/dl (1.6-2.3) 03/16/25 03:34
Triglycerides 139 mg/dl (10-149) 03/15/25 03:19
LDL Cholesterol, Calc 123 mg/dl 03/15/25 03:19
VLDL Cholesterol, Calc 27 mg/dl (0-30) 03/15/25 03:19
HDL Cholesterol 42 mg/dl 03/15/25 03:19
03/14/25
10:49
Xgl-D-Hfnjrulndwk Pept 2490
LAB Results
03/14/25 03/14/25 03/15/25
10:49 18:01 01:15
Troponin I 0.025 0.027 0.027
03/15/25
09:06
Troponin I Cancelled
Physical Exam
Constitutional: No acute distress
EENT: Moist mucous membranes
Cardiovascular: Rhythm/rate is irregular, Pedal edema present, JVD present and Systolic murmur present
Respiratory: Respiratory effort normal and Lungs clear to auscul.
Neuro/Psych: AO x 3
Data Reviewed
-
Date of Service: March 16, 2025
EKG: Other (Tele: A fib 80s)
Labs: Labs Reviewed by me
[2025-03-16 11:21] LABS: Glucose - Point of Care 188 mg/dl (70-99)
[2025-03-16] MEDS: KCL 40 MEQ PO (11:39)
[2025-03-16] MEDS: FLUSH (NSS) 1 FLUSH IV (11:40)
[2025-03-16] MEDS: LASIX 40 MG IV ×2 (11:40→17:19)
--- NOTE | 2025-03-16 11:45 | PTCARENOTE ---
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 VSS. Afib on the monitor, HR in the 90's. Pt denies chest pain or SOB, but reports mild discomfort from defibrillator pads. Call butts within reach.
[2025-03-16] MEDS: MUCINEX 600 MG PO ×2 (13:32→20:09)
[2025-03-16] MEDS: ROBITUSSIN 200 MG PO (13:32)
--- NOTE | 2025-03-16 14:27 | CM ---
Chart reviewed. Patient is independent of ADLS, lives with his in a 2 STH, 1st level set up,2 HAN[facility], 0 DME. Plan is for the patient to return home. CM to follow
[2025-03-16 16:54] LABS: Glucose - Point of Care 197 mg/dl (70-99)
[2025-03-16] MEDS: LIPITOR 40 MG PO (17:20)
[2025-03-16] MEDS: ENTRESTO 24 MG/26 MG 1 TAB PO (20:08)
[2025-03-16] MEDS: KCL 20 MEQ PO (20:09)
[2025-03-16] MEDS: TOPROL XL 50 MG PO (20:11)
[2025-03-16] MEDS: XALATAN OPHTHALMIC SOLUTION 1 DROP BOTH EYES (20:42)
[2025-03-16 22:28] LABS: Glucose - Point of Care 201 mg/dl (70-99)
[2025-03-17] VITALS (10 sets, daily range): BP systolic 95–136; BP diastolic 68–115; BMI 32.7
--- NOTE | 2025-03-17 02:14 | PTCARENOTE ---
Pt. remains in A-fib, rate low 100's at rest, up to 150's with ambulation but noted to improve post 1999 Toprol. No complaints of pain/discomfort. Current HR 101 - pt. sleeping.
[2025-03-17 03:52] LABS: Hematocrit 48.7 % (39.0-52.0); Hemoglobin 16.7 g/dL (13.0-18.0); Mean Corp Hgb Conc. 34.3 g/dL (33.0-37.0); Mean Corpuscular Hgb 28.9 pg (27.0-31.0); Mean Corpuscular Volume 84.4 fL (80.0-94.0); Mean Platelet Volume 8.8 fL (7.4-10.4); Platelet Count 288 10^3/uL (130-400); Red Blood Cell Count 5.77 10^6/uL (4.70-6.10); Red Cell Dist. Width 12.8 % (11.5-14.5); White Blood Cell Count 8.2 10^3/uL (4.8-10.8)
[2025-03-17] MEDS: BENADRYL 25 MG PO (03:56)
[2025-03-17 04:15] LABS: Blood Urea Nitrogen 24 mg/dl (9-20); Carbon Dioxide 25 mmol/L (22-30); Chloride 108 mmol/L (98-107); Estimated Creatinine Clearance 90 ml/min; Glucose 187 mg/dl (70-99); Magnesium 1.9 mg/dl (1.6-2.3); Phosphorus 4.6 mg/dl (2.5-4.5); Sodium 144 mmol/L (135-145); eGFR > 60.00
[2025-03-17 08:10] LABS: Glucose - Point of Care 178 mg/dl (70-99)
[2025-03-17] MEDS: ENTRESTO 24 MG/26 MG 1 TAB PO ×2 (08:11→20:04)
[2025-03-17] MEDS: KCL 20 MEQ PO (08:11)
[2025-03-17] MEDS: MUCINEX 600 MG PO ×2 (08:11→20:05)
[2025-03-17] MEDS: TOPROL XL 50 MG PO ×2 (08:11→20:05)
[2025-03-17] MEDS: FARXIGA 10 MG PO (08:11)
[2025-03-17] MEDS: ROBITUSSIN 200 MG PO ×3 (08:11→22:59)
[2025-03-17] MEDS: LASIX 40 MG IV ×2 (08:12→17:09)
[2025-03-17] MEDS: TIMOPTIC 0.25% OPHTHALMIC SOLUTION 1 DROP BOTH EYES ×2 (08:12→20:05)
[2025-03-17] MEDS: XALATAN OPHTHALMIC SOLUTION 1 DROP BOTH EYES (08:12)
[2025-03-17] MEDS: NOVOLOG FLEXPEN-LOW RESISTANCE 1 UNITS SC ×3 (08:21→17:10)
[2025-03-17] MEDS: ELIQUIS 5 MG PO ×2 (08:22→20:05)
--- NOTE | 2025-03-17 09:05 | PTCARENOTE ---
Assumed care. Patient AO x3, A-fib HR 105, BP 113/83. Intermittent dry cough, occasional shortness of breath, lungs CTA. Reports less abdominal fullness since starting IV Lasix. Using urinal at bedside. call butts in reach
--- NOTE | 2025-03-17 09:16 | W.PN.HOSP.TC ---
Today's Communication/Plan
-
cont diuresis, rate control as per cardio
Claritin
daily weight I/O
Assessment / Plan
Assessment / Plan
Physical Exam
General: no acute distress, appears comfortable at this time
HEENT: NormoCephalic, Moist mucous membranes and Atraumatic
Respiratory: Bibasilar crackles
Cardiac: S1/S2 and Regular Rhythm; No Murmur or Rub
GI: Soft, Non Tender, Non Distended and Normal Bowel Sounds; No Organomegaly
Musculoskeletal: No Clubbing, No Cyanosis and No Edema
Neuro: AOx3 conversant coherent
Psych: Calm
60M HX PE, DVT, non compliance with meds (took himself off medications including DOAC 4y ago) and follow up with primary care, T2DM, HTN, HLD, chr back pain, HX BW resection pw increasing shortness of breath over the last several days found to be in
rapid A-fib, hx pAfib.
Acute HFrEF
CT suggest CHF
prior LVEF 55-60 % suspect HFpEF
- IV Lasix 40 BID as per Cardio
- Daily - Wt, IOs, BMP
- ECHO appreciated EF 35-40% worse from prior ECHO 05/2020 EF 55-60% then
- CBC card consult appreciated started on Farxiga Metoprolol Entresto, Cardioversion unfortunately was not successful
-Troponin wnl x3
-BNP 2490
Fast AF - presumed new onset
Reports in and out of A Fib of uncertain chronicity
No prior EKG evidence of A Fib
Preserved LVEF
Prior HX Xarelto for PE
- HX nonadherence to Meds and f/u
- Diltiazem gtt transitioned to metoprolol as per cardio
- Cardio eval appreciated started on Eliquis
NEG CT evidence of acute PE
HX PE/DVT
Nasal Congestion
Post-nasal drip
productive cough
-sputum sample if possible
-Claritin
-cough medications
HTN
- Entresto Metoprolol Lasix
- monitor and titrate antihypertensive regimen as necessary
DMT2
- sliding scale
- A1C 8.1
HLD
- cont statin
Morbid obesity ( BMI 30s)
affects all aspects of life
Chr LBP
- Tylenol prn
DVT Px: Eliquis
Full code
IP TLM
I spent a total of 45 minutes with the patient or on the floor. More than 50% of this time involved counseling and coordination of care.
Anticipated Discharge: 24 - 48 hours
Subjective/Interval History
-
Date of Service: March 17, 2025
reports nasal congestion, post-nasal drip, productive cough. otherwise no acute distress appears comfortable.
Objective Data
-
Labs:
Laboratory Results
03/17/25
03:35
WBC 8.2
Hgb 16.7
Hct 48.7
Plt Count 288
Sodium 144
Potassium 4.0
Chloride 108 H
Carbon Dioxide 25
BUN 24 H
Creatinine 1.0
Glucose 187 H
Calcium 10.0
Vital Signs:
Vital Signs
Temp Pulse Resp BP Pulse Ox
98.2 F 119 20 113/83 96
03/17/25 08:03 03/17/25 08:12 03/17/25 08:03 03/17/25 08:12 03/17/25 08:03
I&O
03/16/25 03/17/25 03/18/25
06:59 06:59 06:59
Intake Total 160 / 160 960 / 960
Output Total 2775 / 2775 3125 / 3125
Balance -2615 / -2615 -2165 / -2165
[2025-03-17] MEDS: CLARITIN 10 MG PO (12:30)
[2025-03-17] MEDS: TYLENOL 650 MG PO ×2 (12:30→22:59)
[2025-03-17 12:39] LABS: Glucose - Point of Care 177 mg/dl (70-99)
--- NOTE | 2025-03-17 14:06 | W.PN.CD ---
Today's Communication / Plan
-
- Continue Diuresis
- Set up EP evaluation as outpatient - 03/23/25
- Possible discharge home tomorrow if rate coenrolled and close to euvolemic
Impression / Plan
-
I/P: 60M with NIDDM, unprovoked DVT (2012, 2016), unprovoked PE (2019), HTN, HLD, and one episode of atrial fibrillation while in a medically induced coma presented with shortness of breath. He was found to be in acute heart failure and in atrial
fibrillation with RVR.
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 Almaraz
Heart failure, acute HFrEF, EF 35-40%
- Severe requiring admission and management with IV diuresis and close monitoring of labs/tele
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
- optimizing GDMT
-increase Toprol XL to 50mg bid
-add entresto
-continue farxiga
-aldactone: not yet added
-cont IV lasix 40mg bid - Still fluid overloaded
-unclear dry weight
Cardiomyopathy
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
- meds as above
-will repeat echo as outpatient in approx 4-6 weeks
-if EF not improved, will discuss cardiac cath for ischemic eval; otherwise, can do nuclear stress
Atrial fibrillation with rapid ventricular response
-unsuccessful DCCV on 03/16: increased Toprol XL to 50mg bid
-Plan for EP evaluation as outpatient for possible ablation.
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
- [id number]: score at least 3 (Heart failure, HTN, Diabetes Mellitus)
Moderate MR
-outpatient f/u
NIDDM
- With hyperglycemia, self discontinued medications
- Hgba1c 8.1%, diabetic education
Hypercholesterolemia
- TC 192, LDL 123, HDL 42, TG 139 - started on atorvastatin 40mg, fasting lipid panel in 8-12 weeks
- Goal LDL <70 given his type 2 diabetes
Prior DVTs, unprovoked (2012, 2016)
Prior PE (2019), self discontinued anticoagulation
Obesity, BMI 33, he would benefit from weight loss
Physical Exam
Vital Signs/Labs
Vital Signs
Temp Pulse Resp BP Pulse Ox
97.7 F 113 20 106/72 97
03/17/25 11:24 03/17/25 13:35 03/17/25 11:24 03/17/25 13:35 03/17/25 11:25
03/16/25 03/17/25 03/18/25
06:59 06:59 06:59
Actual Weight 101.6 kg 100.5 kg
03/17/25 03:35
03/17/25 03:35
Magnesium 1.9 mg/dl (1.6-2.3) 03/17/25 03:35
Triglycerides 139 mg/dl (10-149) 03/15/25 03:19
LDL Cholesterol, Calc 123 mg/dl 03/15/25 03:19
VLDL Cholesterol, Calc 27 mg/dl (0-30) 03/15/25 03:19
HDL Cholesterol 42 mg/dl 03/15/25 03:19
03/14/25
10:49
Gbj-C-Xterlxiimxq Pept 2490
LAB Results
03/14/25 03/15/25 03/15/25
18:01 01:15 09:06
Troponin I 0.027 0.027 Cancelled
Physical Exam
Constitutional: No acute distress and Comfortable
EENT: Anicteric and Moist mucous membranes
Cardiovascular: Rhythm/rate is irregular, Pedal edema present, JVD present and Systolic murmur present
Respiratory: Respiratory effort normal, Lungs clear to auscul. and Wheeze Absent
GI: Soft, Non tender and Normal bowel sounds
Neuro/Psych: Alert, Oriented and AO x 3
Data Reviewed
-
Date of Service: March 17, 2025
Medical Decision Making: Reviewed Test Results, Test Interpretation and Review of Case with other Provider
EKG: Tracing Personally Visualized and interpreted
Echo: Report Reviewed by me
Labs: Labs Reviewed by me
Old Records: Reviewed
[2025-03-17 16:59] LABS: Glucose - Point of Care 193 mg/dl (70-99)
[2025-03-17] MEDS: LIPITOR 40 MG PO (17:10)
--- NOTE | 2025-03-17 21:31 | PTCARENOTE ---
Patient received at change of shift resting in the bed. Denies pain. Reports dyspnea on exertion, feels more tired today. Afib on the monitor. Oxygen saturation 97% on room air. Plan of care discussed. Call butts within reach. Care ongoing.
[2025-03-17 22:43] LABS: Glucose - Point of Care 177 mg/dl (70-99)
[2025-03-17] MEDS: MELATONIN 5 MG PO (22:59)
[2025-03-18] VITALS (17 sets, daily range): BP systolic 91–114; BP diastolic 69–97; BMI 32.5
[2025-03-18 03:48] LABS: Hematocrit 55.4 % (39.0-52.0); Hemoglobin 18.8 g/dL (13.0-18.0); Mean Corp Hgb Conc. 33.9 g/dL (33.0-37.0); Mean Corpuscular Hgb 29.3 pg (27.0-31.0); Mean Corpuscular Volume 86.3 fL (80.0-94.0); Mean Platelet Volume 8.6 fL (7.4-10.4); Platelet Count 338 10^3/uL (130-400); Red Blood Cell Count 6.42 10^6/uL (4.70-6.10); Red Cell Dist. Width 12.8 % (11.5-14.5); White Blood Cell Count 7.8 10^3/uL (4.8-10.8)
[2025-03-18 04:16] LABS: Blood Urea Nitrogen 41 mg/dl (9-20); Calcium 10.3 mg/dl (8.4-10.2); Carbon Dioxide 30 mmol/L (22-30); Chloride 104 mmol/L (98-107); Estimated Creatinine Clearance 74 ml/min; Glucose 190 mg/dl (70-99); Magnesium 2.2 mg/dl (1.6-2.3); Potassium 4.4 mmol/L (3.5-5.1); Sodium 144 mmol/L (135-145); eGFR > 60.00
[2025-03-18 07:55] LABS: Glucose - Point of Care 209 mg/dl (70-99)
[2025-03-18] MEDS: NOVOLOG FLEXPEN-LOW RESISTANCE 2 UNITS SC ×2 (07:55→17:34)
[2025-03-18] MEDS: ROBITUSSIN 200 MG PO (07:57)
[2025-03-18] MEDS: ELIQUIS 5 MG PO ×2 (07:57→19:30)
[2025-03-18] MEDS: MUCINEX 600 MG PO ×2 (07:57→19:30)
[2025-03-18] MEDS: TIMOPTIC 0.25% OPHTHALMIC SOLUTION 1 DROP BOTH EYES ×2 (07:59→19:31)
[2025-03-18] MEDS: XALATAN OPHTHALMIC SOLUTION 1 DROP BOTH EYES (07:59)
[2025-03-18] MEDS: CLARITIN 10 MG PO (08:04)
--- NOTE | 2025-03-18 08:52 | W.PN.HOSP.TC ---
Today's Communication/Plan
-
diuresis rate control as per Cardio
Assessment / Plan
Assessment / Plan
Physical Exam
General: no acute distress, appears comfortable at this time
HEENT: NormoCephalic, Moist mucous membranes and Atraumatic
Respiratory: Bibasilar crackles
Cardiac: S1/S2 and Regular Rhythm; No Murmur or Rub
GI: Soft, Non Tender, Non Distended and Normal Bowel Sounds; No Organomegaly
Musculoskeletal: No Clubbing, No Cyanosis and No Edema
Neuro: AOx3 conversant coherent
Psych: Calm
60M HX PE, DVT, non compliance with meds (took himself off medications including DOAC 4y ago) and follow up with primary care, T2DM, HTN, HLD, chr back pain, HX BW resection pw increasing shortness of breath over the last several days found to be in
rapid A-fib, hx pAfib.
Acute HFrEF
CT suggest CHF
prior LVEF 55-60 % suspect HFpEF
- IV Lasix 40 BID as per Cardio
- Daily - Wt, IOs, BMP
- ECHO appreciated EF 35-40% worse from prior ECHO 05/2020 EF 55-60% then
- CBC card consult appreciated started on Farxiga Metoprolol Aldactone, Cardioversion unfortunately was not successful
-Troponin wnl x3
-BNP 2490
Afib RVR
Reports in and out of A Fib of uncertain chronicity
Prior HX Xarelto for PE
- HX nonadherence to Meds and f/u
- Diltiazem gtt transitioned to metoprolol as per cardio, metoprolol dose increased for better rate control
- Cardio eval appreciated started on Eliquis
NEG CT evidence of acute PE
HX PE/DVT
Allergic Rhinitis
Nasal Congestion
Post-nasal drip
productive cough
-sputum sample if possible
-Claritin
-cough medications
-[place] nasal spray
HTN
- Metoprolol Lasix
-initially started on Entresto switched to Aldactone as per cardio
- monitor and titrate antihypertensive regimen as necessary
DMT2
- sliding scale
- A1C 8.1
HLD
- cont statin
Morbid obesity ( BMI 30s)
affects all aspects of life
Chr LBP
- Tylenol prn
DVT Px: Eliquis
Full code
IP TLM
I spent a total of 45 minutes with the patient or on the floor. More than 50% of this time involved counseling and coordination of care.
Anticipated Discharge: 24 - 48 hours
Subjective/Interval History
-
Date of Service: March 18, 2025
Reports nasal congestion, itch eyes.
Objective Data
-
Labs:
Laboratory Results
03/18/25
03:34
WBC 7.8
Hgb 18.8 H
Hct 55.4 H
Plt Count 338
Sodium 144
Potassium 4.4
Chloride 104
Carbon Dioxide 30
BUN 41 H
Creatinine 1.2
Glucose 190 H
Calcium 10.3 H
Vital Signs:
Vital Signs
Temp Pulse Resp BP Pulse Ox
97.8 F 100 20 114/97 93
03/18/25 07:27 03/18/25 06:00 03/18/25 07:27 03/18/25 03:29 03/18/25 07:27
I&O
03/17/25 03/18/25 03/19/25
06:59 06:59 06:59
Intake Total 960 / 960 960 / 960
Output Total 3125 / 3125 2575 / 2575
Balance -2165 / -2165 -1615 / -1615
--- NOTE | 2025-03-18 09:55 | W.PN.CD ---
Addendum entered and electronically signed by Alex Carroll MD 03/18/25 10:28:
Dr. Stone informed me that he has an appointment to see the patient in the officed next Friday and an Afib ablation is tentatively planned for 1-2 weeks after office visit.
Given the short time to AFib abation we do not need perfect rate control.
Need a bit more diuresis so he is feeling better and more rate control should help.
At some point consideration for ischemic evaluation can be pursued, izzy if EF does not respond to rate/rhythm control.
Addendum entered and electronically signed by Alex Carroll MD 03/18/25 10:23:
-
I stopped KCl as I added Aldactone
Follow BMP
Original Note:
Today's Communication / Plan
-
Stop Entresto for now
Increase metoprolol for more rate control
Add low dose MRA
Watch for need of Zaroxolyn
Still need to determine goal weight
Good candidate for GLP1 agonist or GLP1/GIP dual agonist for DM, obesity, HF
Afib ablation in a few weeks is planned by Dr. Stone
55 min spent reviewing chart, documenting, etc.
Impression / Plan
-
Background: 60M with Type II DM, unprovoked DVT (2012, 2016), unprovoked PE (2019), HTN, HLD, and one episode of atrial fibrillation while in a medically induced coma presented with shortness of breath. He was found to be in acute heart failure and
in atrial fibrillation with RVR.
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 Almaraz
Acute HFrEF, EF 35-40% (perhaps a tachy myopathy)
- Admit weight 106/104.2 kg. Now on 03/18/2025 99.7 kg
- BP is soft for more BB so will stop Entresto for now, increased metoprolol for more rate control
- Continue diuresis Lasix 40 IV BID, may need some Zaroxolyn
- Goal weight is not determined, BUN/Cr ratio is beginning to increase
- GDMT: on HF BB, on SGLT2-I, stopping ARNI to allow more BB, will add low dose MRA
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
- Rate and then rhythm control approach to his AFib is planned
- LVEF will be re-assessed once good AFib control has been
- Will also pursue standard GDMT as above
Atrial fibrillation with rapid ventricular response, DURATION of AFib is unknown
- Pattern of AFib (paroxysmal or persistent) is not known yet
- unsuccessful DCCV on 03/16/2024
- Rate control fro now and PVI as outpatient (Dr. Stone saw Mr. Luz yesterday, 03/17/2025)
- Afib risk factor modification will be reinforced: BMI control, ETOH, evaluation NO, exercise, etc
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
- [id number]: score at least 3 (Heart failure, HTN, Diabetes Mellitus)
Moderate MR
- MV structurally normal at MAGDALENO so this is secondary / functional MR
- Follow over time
Type II DM, Hgba1c not at goal, 8.1%, diabetic education
Mixed hyperlipidemia
- TC 192, LDL 123, HDL 42, TG 139 - started on atorvastatin 40mg, fasting lipid panel in 8-12 weeks
- Goal LDL <70 given his type 2 diabetes
Prior DVTs, unprovoked (2012, 2016)
Prior PE (2019), self discontinued anticoagulation
Obesity, BMI 33, he would benefit from weight loss
- Good candidate for GLP1 agonist or GLP1/GIP dual agonist for DM, obesity, HF
Subjective: Feels better than on admit but not as good as 2 days ago
Physical Exam
Vital Signs/Labs
Vital Signs
Temp Pulse Resp BP Pulse Ox
97.8 F 100 20 114/97 93
03/18/25 07:27 03/18/25 06:00 03/18/25 07:27 03/18/25 03:29 03/18/25 07:27
03/17/25 03/18/25 03/19/25
06:59 06:59 06:59
Actual Weight 100.5 kg 99.7 kg
03/18/25 03:34
03/18/25 03:34
Magnesium 2.2 mg/dl (1.6-2.3) 03/18/25 03:34
Triglycerides 139 mg/dl (10-149) 03/15/25 03:19
LDL Cholesterol, Calc 123 mg/dl 03/15/25 03:19
VLDL Cholesterol, Calc 27 mg/dl (0-30) 03/15/25 03:19
HDL Cholesterol 42 mg/dl 03/15/25 03:19
03/14/25
10:49
Bcz-I-Cosqhlwgrbo Pept 2490
LAB Results
03/15/25
09:06
Troponin I Cancelled
Physical Exam
Constitutional: No acute distress
Cardiovascular: Pedal edema is absent and Rhythm/rate is irregular
Respiratory: Respiratory effort normal and Crackles Present (at bases)
GI: Soft and Distention absent
Neuro/Psych: AO x 3
Data Reviewed
-
Date of Service: March 18, 2025
[2025-03-18] MEDS: ENTRESTO 24 MG/26 MG PO (10:33)
[2025-03-18] MEDS: FARXIGA 10 MG PO (10:36)
[2025-03-18] MEDS: TOPROL XL 50 MG PO (10:40)
[2025-03-18] MEDS: LASIX 40 MG IV ×2 (10:41→17:24)
--- NOTE | 2025-03-18 10:47 | PTCARENOTE ---
Spoke with Dr. Tse, patient BP 93/73 this am. 50 mg of Toprol XL given and 40mg of IV Lasix given. BP 100/70 HR 108.
[2025-03-18] MEDS: BENADRYL 25 MG PO (11:25)
[2025-03-18] MEDS: ALDACTONE 25 MG PO (11:25)
[2025-03-18 12:00] LABS: Glucose - Point of Care 249 mg/dl (70-99)
[2025-03-18] MEDS: OCEAN, SALINE MIST 2 SPRAYS NASAL ×3 (13:24→21:40)
[2025-03-18 14:41] LABS: Glucose - Point of Care 186 mg/dl (70-99)
[2025-03-18] MEDS: NOVOLOG FLEXPEN-LOW RESISTANCE 1 UNITS SC (14:42)
[2025-03-18] MEDS: TYLENOL 650 MG PO ×2 (16:46→22:18)
[2025-03-18] MEDS: LIPITOR 40 MG PO (17:24)
[2025-03-18 17:38] LABS: Glucose - Point of Care 204 mg/dl (70-99)
--- NOTE | 2025-03-18 18:14 | PTCARENOTE ---
Patient AO x 3. Walking to the bathroom unassisted, gait steady. A-Fib HR 100-130's, trace ankle edema. Slightly dyspneic with exertion, intermittent dry non-productive cough, lungs CTA. Tylenol given for a headache. Voiding in urinal dark yellow
urine, call butts with reach
[2025-03-18] MEDS: TOPROL XL 75 MG PO (21:39)
[2025-03-18] MEDS: MELATONIN 5 MG PO (22:18)
[2025-03-18 22:24] LABS: Glucose - Point of Care 182 mg/dl (70-99)
--- NOTE | 2025-03-19 02:19 | PTCARENOTE ---
HR down 80's-90's with sleep this shift, A-fib. Pt. has no complaints.
[2025-03-19 03:37] VITALS: BP 91/78
[2025-03-19 04:01] LABS: Hematocrit 49.4 % (39.0-52.0); Hemoglobin 17.5 g/dL (13.0-18.0); Mean Corp Hgb Conc. 35.4 g/dL (33.0-37.0); Mean Corpuscular Hgb 29.8 pg (27.0-31.0); Mean Corpuscular Volume 84.2 fL (80.0-94.0); Mean Platelet Volume 8.9 fL (7.4-10.4); Platelet Count 342 10^3/uL (130-400); Red Blood Cell Count 5.87 10^6/uL (4.70-6.10); Red Cell Dist. Width 12.5 % (11.5-14.5); White Blood Cell Count 7.7 10^3/uL (4.8-10.8)
[2025-03-19 04:26] LABS: Blood Urea Nitrogen 46 mg/dl (9-20); Calcium 9.6 mg/dl (8.4-10.2); Carbon Dioxide 24 mmol/L (22-30); Chloride 106 mmol/L (98-107); Estimated Creatinine Clearance 81 ml/min; Glucose 178 mg/dl (70-99); Magnesium 2.2 mg/dl (1.6-2.3); Potassium 3.7 mmol/L (3.5-5.1); Sodium 141 mmol/L (135-145); eGFR > 60.00
[2025-03-19 04:41] LABS: Vitamin D, 25-OH*** 18.7 ng/mL (30-80)
[2025-03-19 06:00] VITALS: BMI 32.4
[2025-03-19 07:48] VITALS: BP 96/81
[2025-03-19 08:48] LABS: Glucose - Point of Care 179 mg/dl (70-99)
[2025-03-19] MEDS: MUCINEX 600 MG PO ×2 (08:48→20:05)
[2025-03-19] MEDS: FARXIGA 10 MG PO (08:48)
[2025-03-19] MEDS: LASIX 40 MG IV ×3 (08:48→15:07)
[2025-03-19] MEDS: NOVOLOG FLEXPEN-LOW RESISTANCE 1 UNITS SC ×2 (08:48→17:25)
[2025-03-19] MEDS: TOPROL XL 75 MG PO ×2 (08:48→20:07)
[2025-03-19] MEDS: TIMOPTIC 0.25% OPHTHALMIC SOLUTION 1 DROP BOTH EYES ×2 (08:49→20:05)
[2025-03-19] MEDS: OCEAN, SALINE MIST 2 SPRAYS NASAL ×4 (08:49→22:08)
[2025-03-19] MEDS: ALDACTONE 25 MG PO (08:49)
[2025-03-19] MEDS: CLARITIN 10 MG PO (08:49)
[2025-03-19] MEDS: ELIQUIS 5 MG PO ×2 (08:49→20:05)
--- NOTE | 2025-03-19 09:00 | PTCARENOTE ---
recieved PT from warehouse shift supervisor RN; PT aaox3 w/o complaints of pain; afib on monitor VSS; RA 97% clear lungs; GI and WNL; chest has rashes from telepads; IV WNL; see worklist for detailed assessment
--- NOTE | 2025-03-19 09:05 | W.PN.CD ---
Addendum entered and electronically signed by Charan Stone MD 03/19/25 12:29:
Patient is seen and evaluated personally. I agree with the documentation, plan of care, and physical examination as discussed personally with nurse practitioner and documented below.
Briefly, 60-year-old gentleman with history of DM, DVT, PE, hypertension, hyperlipidemia, paroxysmal atrial fibrillation with severely reduced ejection fraction which was thought to be secondary to A-fib induced versus tachycardia induced
cardiomyopathy. Patient was fluid overloaded and was diuresed. Patient has significantly improved with diuresis. He has cough has persisted. His chest CT at the time of admission was showing pleural effusions bilaterally. Chest x-ray was done
today there was reviewed personally shows resolution of the pleural effusions. Chest x-ray looks otherwise clean and clear with mild congestion. At this time patient should continue diuresis and can be done as an outpatient. Can use antitussives
for cough suppressant. Patient is scheduled to see EP for evaluation of his atrial fibrillation on 03/23/2025.
Original Note:
Today's Communication / Plan
-
Pt feels cough is worse.
Check CXR, add on BNP to am labs
May need to increase diuresis
Rate control as BP allows.
Impression / Plan
-
Background: 60M with Type II DM, unprovoked DVT (2012, 2016), unprovoked PE (2019), HTN, HLD, and one episode of atrial fibrillation while in a medically induced coma presented with shortness of breath. He was found to be in acute heart failure and
in atrial fibrillation with RVR.
Outpatient superintendent tests: None, will be Dr. Almaraz
Acute HFrEF, EF 35-40% (perhaps a tachy myopathy)
- Admit weight 106/104.2 kg now down to 99.4 kg ( 218.6). He thinks at home prior to admit he was 230 lbs range
- entresto was d/c as requires rate control for AF and BP will not tolerate entresto currently.
- pt states cough has increased , decreased urination yesterday. Check CXR, add BNP to todays labs.
- GDMT: on HF BB, on SGLT2-I, stopping ARNI to allow more BB, MRA added this admit.
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
- Rate and then rhythm control approach to his AFib is planned
- LVEF will be re-assessed once good AFib control has been
- Will also pursue standard GDMT as above
-MAGDALENO this admit EF 35-40, mo MR , no thrombus.
Atrial fibrillation with rapid ventricular response, DURATION of AFib is unknown
- Pattern of AFib (paroxysmal or persistent) is not known yet
- unsuccessful DCCV on 03/16/2024
- Rate control for now and PVI as outpatient (Dr. Stone saw Mr. Luz yesterday, 03/17/2025)
- Afib risk factor modification will be reinforced: BMI control, ETOH, evaluation NO, exercise, etc
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
- [id number]: score at least 3 (Heart failure, HTN, Diabetes Mellitus)
-ambulate today and check HR's
Moderate MR
- MV structurally normal at MAGDALENO so this is secondary / functional MR
- Follow over time
Type II DM, Hgba1c not at goal, 8.1%, diabetic education
Mixed hyperlipidemia
- TC 192, LDL 123, HDL 42, TG 139 - started on atorvastatin 40mg, fasting lipid panel in 8-12 weeks
- Goal LDL <70 given his type 2 diabetes
Prior DVTs, unprovoked (2012, 2016)
Prior PE (2019), self discontinued anticoagulation
Obesity, BMI 33, he would benefit from weight loss
- Good candidate for GLP1 agonist or GLP1/GIP dual agonist for DM, obesity, HF
Subjective: He feels SOB had improved but cough has worsened. No palps or CP. Notes HR increases to 120-140 bpm with walking.
Physical Exam
Vital Signs/Labs
Vital Signs
Temp Pulse Resp BP Pulse Ox
98.9 F 90 18 91/78 96
03/19/25 03:37 03/19/25 03:37 03/19/25 03:37 03/19/25 03:37 03/19/25 03:37
03/18/25 03/19/25 03/20/25
06:59 06:59 06:59
Actual Weight 99.7 kg 99.4 kg
03/19/25 03:47
03/19/25 03:47
Magnesium 2.2 mg/dl (1.6-2.3) 03/19/25 03:47
Triglycerides 139 mg/dl (10-149) 03/15/25 03:19
LDL Cholesterol, Calc 123 mg/dl 03/15/25 03:19
VLDL Cholesterol, Calc 27 mg/dl (0-30) 03/15/25 03:19
HDL Cholesterol 42 mg/dl 03/15/25 03:19
03/14/25
10:49
Yto-Y-Iffthwpkdih Pept 2490
Physical Exam
Constitutional: No acute distress
Cardiovascular: Rhythm/rate is irregular and Pedal edema present
Respiratory: Respiratory effort normal and Other (decreased bases, cough noted with exam )
GI: Soft and Non tender
Neuro/Psych: AO x 3
Data Reviewed
-
Date of Service: March 19, 2025
EKG: Other (Tele: AF 100-120 bpm )
Labs: Labs Reviewed by me
--- NOTE | 2025-03-19 09:54 | PTOTSP ---
Observed patient ambulating to wheelchair at doorway for a test, managed independently with no instability. Patient denied the need for PT while hospitalized and is aware our services are available if needs arise. Will sign off at this time. RN
aware.
[2025-03-19] MEDS: VITAMIN D3 (cholecalciferol) 25 MCG PO (10:13)
[2025-03-19 11:30] LABS: NT-proBNP 813 pg/ml
[2025-03-19 12:11] LABS: Intact PTH 63.5 pg/ml (13.6-85.8)
--- NOTE | 2025-03-19 13:00 | PTCARENOTE ---
no change from previous assessment; possible DC in am
[2025-03-19 13:18] LABS: Glucose - Point of Care 200 mg/dl (70-99)
[2025-03-19] MEDS: NOVOLOG FLEXPEN-LOW RESISTANCE 2 UNITS SC (13:23)
[2025-03-19] MEDS: REFRESH EYE DROPS (PF) 1 DROPS OPHTH ×4 (13:24→22:08)
--- NOTE | 2025-03-19 14:15 | W.PN.HOSP.TC ---
Today's Communication/Plan
-
cont diuresis rate control as per Cardio
supportive care likely Viral URI vs allergic rhinitis
possible discharge tomorrow pending symptom improvement
Assessment / Plan
Assessment / Plan
Physical Exam
General: no acute distress, appears comfortable at this time
HEENT: NormoCephalic, Moist mucous membranes and Atraumatic
Respiratory: Bibasilar crackles
Cardiac: S1/S2 and Regular Rhythm; No Murmur or Rub
GI: Soft, Non Tender, Non Distended and Normal Bowel Sounds; No Organomegaly
Musculoskeletal: No Clubbing, No Cyanosis and No Edema
Neuro: AOx3 conversant coherent
Psych: Calm
60M HX PE, DVT, non compliance with meds (took himself off medications including DOAC 4y ago) and follow up with primary care, T2DM, HTN, HLD, chr back pain, HX BW resection pw increasing shortness of breath over the last several days found to be in
rapid A-fib, hx pAfib.
Acute HFrEF
CT suggest CHF
prior LVEF 55-60 % suspect HFpEF
- IV Lasix 40 BID as per Cardio
- Daily - Wt, IOs, BMP
- ECHO appreciated EF 35-40% worse from prior ECHO 05/2020 EF 55-60% then
- CBC card consult appreciated started on Farxiga Metoprolol Aldactone, Cardioversion unfortunately was not successful
-Troponin wnl x3
-BNP 2490
Afib RVR
Reports in and out of A Fib of uncertain chronicity
Prior HX Xarelto for PE
- HX nonadherence to Meds and f/u
- Diltiazem gtt transitioned to metoprolol as per cardio, metoprolol dose increased for better rate control
- Cardio eval appreciated started on Eliquis
NEG CT evidence of acute PE
HX PE/DVT
Allergic Rhinitis vs Viral URI
Nasal Congestion
Post-nasal drip
productive cough
-sputum sample if possible
-Claritin
-cough medications
-[place] nasal spray
-CXR appreciated moderate cardiomegaly with mild vascular congestion
-artificial tears
HTN
- Metoprolol Lasix
- initially started on Entresto switched to Aldactone as per cardio
- monitor and titrate antihypertensive regimen as necessary
DMT2
- sliding scale
- A1C 8.1
HLD
- cont statin
Morbid obesity ( BMI 30s)
affects all aspects of life
Chr LBP
- Tylenol prn
DVT Px: Eliquis
Full code
IP TLM
I spent a total of 40 minutes with the patient or on the floor. More than 50% of this time involved counseling and coordination of care.
Anticipated Discharge: Within 24 hours
Subjective/Interval History
-
Date of Service: March 19, 2025
Worsening cough, runny nose, itchy eyes.
Objective Data
-
Labs:
Laboratory Results
03/19/25 03/19/25
03:47 03:47
WBC 7.7
Hgb 17.5
Hct 49.4
Plt Count 342
Sodium 141
Potassium 3.7
Chloride 106
Carbon Dioxide 24
BUN 46 H
Creatinine 1.1
Glucose 178 H
Calcium 9.6 9.6
Vital Signs:
Vital Signs
Temp Pulse Resp BP Pulse Ox
98.9 F 90 18 91/78 96
03/19/25 03:37 03/19/25 03:37 03/19/25 03:37 03/19/25 03:37 03/19/25 03:37
I&O
03/18/25 03/19/25 03/20/25
06:59 06:59 06:59
Intake Total 960 / 960 960 / 960
Output Total 2575 / 2575 1949 / 1949
Balance -1615 / -1615 -990 / -990
[2025-03-19] MEDS: TESSALON PERLES 200 MG PO (15:07)
[2025-03-19] MEDS: ROBITUSSIN 200 MG PO (15:08)
--- NOTE | 2025-03-19 15:56 | PTCARENOTE ---
no change from previous assessment; see worklist for detailed assessment
[2025-03-19 16:04] VITALS: BP 100/86
[2025-03-19 17:25] LABS: Glucose - Point of Care 172 mg/dl (70-99)
[2025-03-19 18:31] VITALS: BP 98/79
[2025-03-19] MEDS: LIPITOR 40 MG PO (19:03)
[2025-03-19 20:06] VITALS: BP 102/82
[2025-03-19 21:14] LABS: Glucose - Point of Care 192 mg/dl (70-99)
[2025-03-19 22:06] VITALS: BP 104/83
[2025-03-19] MEDS: MELATONIN 5 MG PO (22:07)
[2025-03-19] MEDS: BENADRYL 25 MG PO (22:07)
[2025-03-19] MEDS: XALATAN OPHTHALMIC SOLUTION 1 DROP BOTH EYES (22:08)
[2025-03-20 04:08] VITALS: BP 111/86
[2025-03-20 04:21] VITALS: BMI 32.3
[2025-03-20 04:28] LABS: Hematocrit 49.4 % (39.0-52.0); Hemoglobin 17.3 g/dL (13.0-18.0); Mean Corpuscular Hgb 29.3 pg (27.0-31.0); Mean Corpuscular Volume 83.7 fL (80.0-94.0); Mean Platelet Volume 9.1 fL (7.4-10.4); Platelet Count 330 10^3/uL (130-400); Red Cell Dist. Width 12.4 % (11.5-14.5); White Blood Cell Count 8.4 10^3/uL (4.8-10.8)
[2025-03-20 04:57] LABS: Blood Urea Nitrogen 44 mg/dl (9-20); Calcium 9.9 mg/dl (8.4-10.2); Carbon Dioxide 24 mmol/L (22-30); Chloride 106 mmol/L (98-107); Estimated Creatinine Clearance 81 ml/min; Glucose 190 mg/dl (70-99); Magnesium 2.3 mg/dl (1.6-2.3); Phosphorus 5.2 mg/dl (2.5-4.5); Potassium 3.7 mmol/L (3.5-5.1); Sodium 141 mmol/L (135-145); eGFR > 60.00
--- NOTE | 2025-03-20 07:32 | W.PN.HOSP.TC ---
Addendum entered and electronically signed by Malathi Pollard MD 03/20/25 15:05:
Vit D deficiency
-supplementation started
Original Note:
Today's Communication/Plan
-
discharge
Assessment / Plan
Assessment / Plan
Physical Exam
General: no acute distress, appears comfortable at this time
HEENT: NormoCephalic, Moist mucous membranes and Atraumatic
Respiratory: Clear to auscultation b/l
Cardiac: S1/S2 and Regular Rhythm; No Murmur or Rub
GI: Soft, Non Tender, Non Distended and Normal Bowel Sounds; No Organomegaly
Musculoskeletal: No Clubbing, No Cyanosis and No Edema
Neuro: AOx3 conversant coherent
Psych: Calm
60M HX PE, DVT, non compliance with meds (took himself off medications including DOAC 4y ago) and follow up with primary care, T2DM, HTN, HLD, chr back pain, HX BW resection pw increasing shortness of breath over the last several days found to be in
rapid A-fib, hx pAfib.
Acute HFrEF
CT suggest CHF
prior LVEF 55-60 % suspect HFpEF
- IV Lasix 40 BID transitioned to PO 40 mg daily as per Cardio
- Daily - Wt, IOs, BMP
- ECHO appreciated EF 35-40% worse from prior ECHO 05/2020 EF 55-60% then
- CBC card consult appreciated started on Farxiga Metoprolol Aldactone Losartan, Cardioversion unfortunately was not successful
-Troponin wnl x3
-BNP 2490
Afib RVR
Reports in and out of A Fib of uncertain chronicity
Prior HX Xarelto for PE
- HX nonadherence to Meds and f/u
- Diltiazem gtt transitioned to metoprolol as per cardio, metoprolol dose increased for better rate control
- Cardio eval appreciated started on Eliquis
NEG CT evidence of acute PE
HX PE/DVT
Allergic Rhinitis vs Viral URI
Nasal Congestion
Post-nasal drip
productive cough
-sputum sample if possible
-Claritin
-cough medications
-[place] nasal spray
-CXR appreciated moderate cardiomegaly with mild vascular congestion
-artificial tears
-symptoms since improved
HTN
- Metoprolol Lasix
- initially started on Entresto switched to Aldactone as per cardio
- monitor and titrate antihypertensive regimen as necessary
DMT2
- sliding scale
- A1C 8.1
HLD
- cont statin
Morbid obesity ( BMI 30s)
affects all aspects of life
Chr LBP
- Tylenol prn
DVT Px: Eliquis
Full code
IP TLM
Medically stable for discharge home with outpatient follow up recommendations.
I spent a total of 40 minutes with the patient or on the floor. More than 50% of this time involved counseling and coordination of care.
Anticipated Discharge: Today
Subjective/Interval History
-
Date of Service: March 20, 2025
No acute distress resting comfortably in bed. Reports improvement in symptoms including coughing nasal congestion itchy eyes. Reports overall feeling well. Denies new acute issues. Eager to go home.
Objective Data
-
Labs:
Laboratory Results
03/20/25
04:14
WBC 8.4
Hgb 17.3
Hct 49.4
Plt Count 330
Sodium 141
Potassium 3.7
Chloride 106
Carbon Dioxide 24
BUN 44 H
Creatinine 1.1
Glucose 190 H
Calcium 9.9
Vital Signs:
Vital Signs
Temp Pulse Resp BP Pulse Ox
97.8 F 98 16 111/86 95
03/20/25 04:09 03/20/25 06:00 03/20/25 04:09 03/20/25 04:08 03/20/25 04:09
I&O
03/19/25 03/20/25 03/21/25
06:59 06:59 06:59
Intake Total 960 / 960 240 / 240
Output Total 1949 / 1949 3150 / 3150
Balance -990 / -990 -2910 / -2910
[2025-03-20 08:10] VITALS: BP 89/76
[2025-03-20 08:12] VITALS: BP 96/77
[2025-03-20 08:42] LABS: Glucose - Point of Care 209 mg/dl (70-99)
[2025-03-20] MEDS: NOVOLOG FLEXPEN-LOW RESISTANCE 2 UNITS SC ×2 (08:48→11:59)
[2025-03-20] MEDS: LASIX 40 MG IV (08:50)
[2025-03-20] MEDS: FLUSH (NSS) 1 FLUSH IV (08:50)
[2025-03-20] MEDS: VITAMIN D3 (cholecalciferol) 25 MCG PO (08:50)
[2025-03-20] MEDS: FARXIGA 10 MG PO (08:50)
[2025-03-20] MEDS: MUCINEX 600 MG PO (08:50)
[2025-03-20] MEDS: REFRESH EYE DROPS (PF) 1 DROPS OPHTH ×2 (08:51→13:31)
[2025-03-20] MEDS: TOPROL XL 75 MG PO (08:51)
[2025-03-20] MEDS: CLARITIN 10 MG PO (08:51)
[2025-03-20] MEDS: ELIQUIS 5 MG PO (08:51)
[2025-03-20] MEDS: ALDACTONE 25 MG PO (08:51)
[2025-03-20] MEDS: OCEAN, SALINE MIST 2 SPRAYS NASAL ×2 (08:52→13:32)
--- NOTE | 2025-03-20 08:52 | W.PN.CD ---
Today's Communication / Plan
-
- Stable for discharge.
- On GDMT - Metoprolol / losartan/ farxiga, aldactone and lasix
- Lasix to 40 mg QD.
- Continue Eliquis 5 mg BID
- EP consult arranged.
Impression / Plan
-
I/P: 60M with NIDDM, unprovoked DVT (2012, 2016), unprovoked PE (2019), HTN, HLD, and one episode of atrial fibrillation while in a medically induced coma presented with shortness of breath. He was found to be in acute heart failure and in atrial
fibrillation with RVR.
Outpatient extractions technologist: None, will be Dr. Almaraz
Heart failure, acute HFrEF, EF 35-40%
- Severe requiring admission and management with IV diuresis and close monitoring of labs/tele
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
- optimizing GDMT
-increase Toprol XL to 50mg bid
-add losartan
-continue farxiga
-aldactone:t added
- on IV lasix 40mg bid - can change to 40 mg QD
-OK for discharge.
Cardiomyopathy
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
- meds as above
-will repeat echo as outpatient in approx 4-6 weeks
-if EF not improved, will discuss cardiac cath for ischemic eval; otherwise, can do nuclear stress
Atrial fibrillation with rapid ventricular response
-unsuccessful DCCV on 03/16: increased Toprol XL to 50mg bid
-Plan for EP evaluation as outpatient for possible ablation.
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
- [id number]: score at least 3 (Heart failure, HTN, Diabetes Mellitus)
Moderate MR
-outpatient f/u
NIDDM
- With hyperglycemia, self discontinued medications
- Hgba1c 8.1%, diabetic education
Hypercholesterolemia
- TC 192, LDL 123, HDL 42, TG 139 - started on atorvastatin 40mg, fasting lipid panel in 8-12 weeks
- Goal LDL <70 given his type 2 diabetes
Prior DVTs, unprovoked (2012, 2016)
Prior PE (2019), self discontinued anticoagulation
Obesity, BMI 33, he would benefit from weight loss
Physical Exam
Vital Signs/Labs
Vital Signs
Temp Pulse Resp BP Pulse Ox
98.3 F 98 20 111/86 95
03/20/25 08:09 03/20/25 06:00 03/20/25 08:09 03/20/25 04:08 03/20/25 08:09
03/19/25 03/20/25 03/21/25
06:59 06:59 06:59
Actual Weight 99.4 kg 99.2 kg
03/20/25 04:14
03/20/25 04:14
Magnesium 2.3 mg/dl (1.6-2.3) 03/20/25 04:14
Triglycerides 139 mg/dl (10-149) 03/15/25 03:19
LDL Cholesterol, Calc 123 mg/dl 03/15/25 03:19
VLDL Cholesterol, Calc 27 mg/dl (0-30) 03/15/25 03:19
HDL Cholesterol 42 mg/dl 03/15/25 03:19
03/14/25 03/19/25
10:49 03:47
Pxg-K-Igrhxdfsmvo Pept 2490 813
Physical Exam
Constitutional: No acute distress and Comfortable
EENT: Anicteric and Moist mucous membranes
Cardiovascular: Pedal edema is absent, JVD pressure is normal and Rhythm/rate is irregular
Respiratory: Respiratory effort normal, Lungs clear to auscul. and Crackles Absent
GI: Soft, Non tender and Normal bowel sounds
Neuro/Psych: Alert, Oriented and AO x 3
Data Reviewed
-
Date of Service: March 20, 2025
Medical Decision Making: Reviewed Test Results, Test Interpretation and Review of Case with other Provider
EKG: Tracing Personally Visualized and interpreted
Echo: Report Reviewed by me
Labs: Labs Reviewed by me
Old Records: Reviewed
[2025-03-20] MEDS: TIMOPTIC 0.25% OPHTHALMIC SOLUTION 1 DROP BOTH EYES (08:53)
--- NOTE | 2025-03-20 10:12 | PTCARENOTE ---
received patient this am, monitor shows Afib, HR 100's, VSS. BS 209, treated as ordered. patient is hoping to be discharged to home today.
[2025-03-20 11:47] VITALS: BP 106/75
[2025-03-20 11:58] LABS: Glucose - Point of Care 222 mg/dl (70-99)
--- NOTE | 2025-03-20 15:09 | W.DCSUMMARY ---
Discharge Summary
Discharge Data
Date of Admission: 03/14/25
Date of Discharge: 03/20/25
-
Pending Results: No
Discharge Plan
-
Patient Disposition: Home (Routine Discharge)
Discharge Diagnosis/Procedures: Acute Heart Failure with Reduced Ejection Fraction
Atrial fibrillation with rapid ventricular rate
Allergic Rhinitis vs Viral Upper Respiratory Infection
Hypertension
Diabetes
Hyperlipidemia
Morbid Obesity
Vitamin D deficiency
Condition: Good
Diet: Low Cholesterol, 2 Gram Sodium and Restrict fluids to 48 oz
Activity: As tolerated
Driving Restrictions: As prior to admission
Bathing Restrictions: None
Blood Work: Repeat CBC and BMP with primary care provider in 1 week of discharge.
Specialty Instructions: Weigh Daily- Call MD for wt gain/loss 3 lbs overnight/5 lbs in 1 week
Activity Restrictions/Additional Instructions:
Follow up with primary care provider in 1 week of discharge and keep your appointment with Cardiology.
apixaban 5 mg tablet (Eliquis) 5 mg PO BID for stroke risk reduction atrial fibrillation
atorvastatin 40 mg tablet 40 mg PO QPM also for stroke risk reduction and treatment hyperlipidemia
cholecalciferol (vitamin D3) 25 mcg (1,000 unit) tablet 25 mcg PO DAILY Started for Vit D deficiency
Farxiga 10 mg tablet 10 mg PO DAILY started for heart failure and diabetes
Metformin started for Diabetes
furosemide 40 mg tablet 40 mg PO DAILY started for Heart Failure
guaifenesin 100 mg/5 mL oral liquid 200 mg (10 mL) PO Q4HPRN PRN cough
guaifenesin 600 mg tablet, extended release 12 hr 600 mg PO Q12 7 days started for cough
losartan 25 mg tablet 25 mg PO DAILY Started for Heart Failure
metoprolol succinate 25 mg tablet,extended release 24 hr 75 mg (3 x 25 mg) PO BID started for better rate control atrial fibrillation and for heart failure
spironolactone 25 mg tablet 25 mg PO DAILY started for heart failure
Please take medications as prescribed/recommended and follow up with primary care provider and/or other healthcare provider involved in your care for refills and/or further adjustment to your medication regimen as necessary.
Instructions: *CBC Heart Failure Instructions
Referrals:
Denisha Winter NP [Specified Professional Personl] - 03/31/25 4:00 pm
UNKNOWN - PT DOES,NOT KNOW [Family Provider] -
Prescriptions:
New
atorvastatin 40 mg Tablet
40 mg PO QPM Qty: 30 0RF
spironolactone 25 mg Tablet
25 mg PO DAILY Qty: 30 0RF
losartan 25 mg Tablet
25 mg PO DAILY Qty: 30 0RF
Eliquis 5 mg Tablet
5 mg PO BID Qty: 60 0RF
dapagliflozin propanediol 10 mg Tablet
10 mg PO DAILY Qty: 30 0RF
furosemide 40 mg Tablet
40 mg PO DAILY Qty: 30 0RF
guaifenesin 600 mg Tablet Extended Release 12hr
600 mg PO Q12 7 Days Qty: 14 0RF
guaifenesin 100 mg/5 mL Liquid
200 mg PO Q4HPRN PRN (Reason: cough) Qty: 1000 0RF
metoprolol succinate 25 mg Tablet Extended Release 24 Hr
75 mg PO BID Qty: 180 0RF
cholecalciferol (vitamin D3) 25 mcg (1,000 unit) Tablet
25 mcg PO DAILY Qty: 30 0RF
metformin 500 mg tablet
500 mg PO BIDWMEAL Qty: 60 0RF
Continued
Systane (PF) 0.4-0.3 % Dropperette
1 drp BOTH EYES TIDPRN PRN (Reason: DRY EYES)
Tremfya Pen 200 mg/2 mL Pen Injector
200 mg SC [id number]
Discharge Orders:
Discharge Patient (As Directed); Ordered 03/20/25
Ordered By: Malathi Pollard
Care Plan Goals
Care Plan Goals:
Problem: Readiness for enhanced knowledge related to diagnosis and treatment plan
Goal: Understand your diagnosis and treatment plan needs, including medications if applicable.
Instructions: Know your diagnosis, underlying causes and treatment plan options, including medications if applicable. Consult with your health care team to learn about your diagnosis and treatment plan, including medications if applicable.
Discharge Date and Time
Print Language: SETSWANA
[2025-03-20 15:52] VITALS: BP 106/75
--- NOTE | 2025-03-20 15:54 | PTCARENOTE ---
D/C instructions given to patient and , both verbalizes understanding. INT D/C'd, telemetry d/C'd, personal belongings packed and snet home with patient. D/C to home via wc accompanied by staff.
--- NOTE | 2025-03-21 12:28 | W.HF.CON ---
Heart Failure
- LV Function
Left ventricular function study result: LV Ejection fraction 36-40%
Ejection Fraction Percentage: 35-40
- ARNI
Patient already on ARNI: No
Heart Failure ARNI Contraindication: Hypotension
- ACEI/ARB
Patient already on ACEI/ARB: Yes
- Beta Breezy
Patient already on Evidence Based Beta Breezy: Yes
- Mineralocorticord Receptor Antagonist
Patient already on MRA: Yes
- SGLT-2 Inhibitor
Patient already on SGLT-2 Inhibitor: Yes
- Afib Anticoagulation
Patient already on Anticoagulation for Afib: Yes
- NYHA CHF Classification
NYHA CHF Classification Level: Class III - Symptoms w/ min exertion, interferes w/ nml daily activity
- ACC/AHA Stage
ACC/AHA Stage: Stage C: Symptomatic Heart Failure
== END 2025-03-20 15:56 | disposition home or self-care (01) | DRG 291 ==
LOC: IVU 14:30
PROVIDERS: Internal Medicine; ADMITTING PHYSICIAN Internal Medicine; ATTENDING PHYSICIAN Internal Medicine; CONSULT PHYSICIAN Internal Medicine Cardiovascular Disease; EMERGENCY PHYSICIAN Emergency Medicine
PROC: 5A2204Z Restoration of Cardiac Rhythm, Single (ICD-10-PCS; 2025-03-16)
PROC: B24BZZ4 Ultrasonography of Heart with Aorta, Transesophageal (ICD-10-PCS; 2025-03-16)
DX: I11.0 Hypertensive heart disease with heart failure (principal); I50.21 Acute systolic (congestive) heart failure; Z11.52 Encounter for screening for COVID-19; I42.9 Cardiomyopathy, unspecified; E11.9 Type 2 diabetes mellitus without complications; E66.01 Morbid (severe) obesity due to excess calories; Z68.36 Body mass index [BMI] 36.0-36.9, adult; I48.0 Paroxysmal atrial fibrillation; Z68.33 Body mass index [BMI] 33.0-33.9, adult; Z91.148 Patient's other noncompliance with medication regimen for other reason; E78.00 Pure hypercholesterolemia, unspecified; E78.2 Mixed hyperlipidemia; E55.9 Vitamin D deficiency, unspecified; I5A Non-ischemic myocardial injury (non-traumatic); Z79.01 Long term (current) use of anticoagulants; Z79.899 Other long term (current) drug therapy
CPT/HCPCS: 71046; 71275; 80048; 80053; 80061; 82248; 82306; 82962; 83036; 83735; 83880; 83970; 84100; 84484; 85025; 85027; 87502; 87811; 92960; 93005; 93306; 93312; 93320; 93325; 96374; 96375; 99285; Q9967

== ENCOUNTER 2025-04-04 08:12 | Day surgery (SDC) | payer BC, SELFPAY ==
[2025-03-29 08:26] VITALS: BMI 33.4
[2025-03-29 08:47] LABS: % Basophils 0.8 % (0-2); % Eosinophils 2.4 % (0-6); % Immature Granulocytes 0.4 % (0-0.5); % Lymphocytes 24.8 % (20.5-51.1); % Monocytes 6.5 % (1.7-9.3); % Neutrophils 65.1 % (42.2-75.2); Absolute Basophils 0.1 10^3/uL (0-0.2); Absolute Eosinophils 0.2 10^3/uL (0-0.7); Absolute Lymphocytes 2.3 10^3/uL (1.2-3.4); Absolute Monocytes 0.6 10^3/uL (0.1-0.6); Absolute Neutrophils 5.9 10^3/uL (1.4-6.5); Hematocrit 49.8 % (39.0-52.0); Hemoglobin 16.7 g/dL (13.0-18.0); Mean Corp Hgb Conc. 33.5 g/dL (33.0-37.0); Mean Corpuscular Hgb 28.4 pg (27.0-31.0); Mean Corpuscular Volume 84.8 fL (80.0-94.0); Nucleated Red Blood Cells % 0 % (-); Platelet Count 349 10^3/uL (130-400); Red Blood Cell Count 5.87 10^6/uL (4.70-6.10); Red Cell Dist. Width 12.4 % (11.5-14.5); White Blood Cell Count 9.1 10^3/uL (4.8-10.8)
[2025-03-29 09:36] LABS: ALT (SGPT) 71 U/L (0-50); AST (SGOT) 34 U/L (17-59); Albumin 4.9 g/dl (3.5-5.0); Alkaline Phosphatase 71 U/L (38-126); Blood Urea Nitrogen 29 mg/dl (9-20); Calcium 10.2 mg/dl (8.4-10.2); Carbon Dioxide 25 mmol/L (22-30); Chloride 105 mmol/L (98-107); Estimated Creatinine Clearance 82 ml/min; Glucose 225 mg/dl (70-99); Potassium 4.4 mmol/L (3.5-5.1); Sodium 139 mmol/L (135-145); Total Bilirubin 1.2 mg/dl (0.2-1.3); Total Protein 7.5 g/dl (6.3-8.2); eGFR > 60.00
[2025-04-04] VITALS (14 sets, daily range): BP systolic 82–150; BP diastolic 64–116
[2025-04-04] MEDS: NSS 500 IV (09:00)
[2025-04-04 09:06] LABS: Glucose - Point of Care 251 mg/dl (70-99)
[2025-04-04 11:04] LABS: Glucose - Point of Care 200 mg/dl (70-99)
[2025-04-04 12:03] LABS: ACT-LR - POC 339 Seconds (116-155)
[2025-04-04 12:03] LABS: ACT-LR - POC 337 Seconds (116-155)
[2025-04-04 12:03] LABS: ACT-LR - POC 305 Seconds (116-155)
[2025-04-04 12:03] LABS: ACT-LR - POC 385 Seconds (116-155)
--- NOTE | 2025-04-04 12:31 | ITS.CL.ABL ---
Lead Simulation Modeling Engineer - Ablation
Ablation
Procedure Report:
AFIB ablation and Watchman Implantation:
Mr. Luz is a very pleasant 60 yr old gentleman with symptomatic persistent AF and atrial flutters, is recommended for atrial fibrillation ablation.
Date of the Procedure:
04/04/2025
Indications:
Persistent atrial fibrillation / atrial flutter
Pre-Operative Diagnosis:
Persistent atrial fibrillation / atrial flutter
Post-Operative Diagnosis:
Persistent atrial fibrillation / atrial flutter
Procedure Performed:
Atrial fibrillation ablation with Pulsed-Field approach for pulmonary vein isolation
Roof dependent atrial flutter ablation
Posterior wall isolation
Performing Physician:
Charan Stone MD
Assistants:
EP staff
Anesthesia:
See anesthesia records
Detailed Description of the Procedure:
Written informed consent was obtained from the patient after a full explanation of the risks and benefits of the procedure including the risks of sedation and anesthesia.
The patient was brought to the electrophysiology laboratory in stable condition in fasting state. Continuous electrocardiographic and hemodynamic monitoring was initiated.
The initial rhythm was atrial fibrillation.
The procedure site was meticulously prepared with surgical scrub and allowed to dry with no pooling. Sterile draping was applied to cover the procedure site. The image intensifier was draped with sterile bag and positioned over the patient. After
infusion of local anesthetic, vascular access was obtained under ultrasound guidance and sheaths were placed over guide wire as detailed below.
Sheath and Catheter Placement:
The following catheters / sheaths were placed
Sheaths:
��������� 17Fr steerable sheath (PhoneAndPhoneadrive�, ReelBig) in right femoral
��������� 9Fr in right femoral vein
Catheters:
��������� NIC HD Grid mapping catheter � at locations of RA, LA
��������� Farawave� PFA catheter
��������� ICE catheter -AcuNav - at locations of RA, SVC, and RV.
Intracardiac ECHO:
An 8-Moldovan AcuNav intracardiac ECHO (ICE) probe was advanced through the 9-Moldovan sheath in the right femoral vein into the right atrium under fluoroscopic and ICE ultrasound image guidance and a baseline ECHO study was performed. The left atrial
size was dilated. There was moderate tricuspid regurgitation. The aortic valve was grossly normal. There was severely reduced left ventricular systolic functions. There is no pericardial effusion. All the four veins were identified and has flow
identified. There was good flow noted in the BEAU.
There was no clot noted in BEAU from two views.
During the procedure, ICE was used for monitoring of complications, guidance of trans-septal puncture, monitor the catheter position and tracking ablation lesions. No change in the pericardial space noted throughout the procedure.
Trans-septal Puncture:
Heparin was initiated and infused to maintain appropriate ACT. A pigtail guidewire was advanced through the 8-Moldovan sheath in the right femoral vein into the superior vena cava under fluoroscopic and ICE guidance. The 9-Moldovan sheath was exchanged
for a Faradrive sheath which was advanced into the superior vena cava. A transseptal VersaCross RF pigtail via Faradrive connect system was utilized to perform the trans-septal puncture. The apparatus was withdrawn until it was in contact with the
fossa ovalis. The position was adjusted based on fluoroscopy and ultrasound images from ICE. Under fluoroscopic, hemodynamic and ICE ultrasound guidance, left atrium was cannulated by applying RF energy. Once atrial septum was cannulated, the
pigtail wire was advanced into the left atrium. The guide wire was advanced into the left superior pulmonary vein. Both the sheath and the dilator was advanced into the left atrium. The dilator with the needle was withdrawn. Blood was aspirated from
the Faradrive sheath and arterial blood confirmed. The sheath was flushed. Saline injection noted into the left atrium on ICE. The mapping catheter was advanced in the sheath into the left pulmonary vein. Left atrial pressure was measured.
3D Electroanatomic Mapping:
Using the HD Grid catheter advanced through sheath into the left atrium, an electroanatomic map (EAM) of the left atrium was created using [employer] mapping system. The map was used for localization of catheter position and tacking of ablation
lesions.
The EAM of the left atrium showed 4 pulmonary veins with all 4 veins electrically connected to the body the LA. It showed only scattered areas of low voltage on the posterior and anterior wall of the LA in AF but had good signals in sinus rhythm.
The LA was dilated in size.
Following the EAM, preparation were made for ablation.
Ablation:
Ablation # 1: Pulmonary vein Isolation:
Glycopyrrolate 0.2 mg was given prior to the placement of ablation. Using [employer] pulsed field ablation system, pulmonary vein isolation was achieved. First the ablation catheter was placed in the LSPV and ostial ablation lesions were performed in
an �Tupman� formation of the Farawave configuration and a counter clock shoemaker rotation was done and ablated to cover the area between the electrodes. Then the catheter was placed on the antral location in �Flower� configuration and multiple ablation
lesions were placed circumferentially on the antrum of the vein.
In the similar fashion, the LIPV were isolated.
Then the catheter was moved to right sided veins. The ostial and antral ablations were placed as noted above.
Patient remained in atrial fibrillation.
Ablation #2: Roof dependent flutter ablation
Patient had hx of atrial flutter that was estimated as atypical atrial flutter and with scar noted at the roof, it was thought to be roof dependent atrial flutter.
Using the pulsed field ablation catheter, the catheter was placed between left superior pulmonary vein and right severe pulmonary vein with series of overlapping ablation lesions placed.
The roof was ablated and CFAE signals in the roof dissipated. No slow conduction noted and not conduction was going through the line of block.
Ablation # 3: Posterior wall isolation:
Using the pulsed field ablation catheter, the catheter was placed on the posterior wall and moved around the posterior wall to have adequate contact and ablations were placed isolating the posterior wall.
Cardioversion:
Once the PV isolation was achieved, decision was made to proceed with cardioversion. A 200 J biphasic shock was applied on the ya posterior Zoll patches and sinus rhythm was achieved. No significant pause noted.
EPS and Confirmation of the PVI and bidirectional block:
Following achievement of entrance block at the pulmonary veins, pacing from the HD catheter in each of the four veins at 10 milliamps for 2 milliseconds showed entrance and exit block. All PVI were rechecked at the end of the case and remained
isolated. Entrance and exit block were demonstrated in all veins.
Post ablation Electroanatomic mapping:
Once ablation was completed, the EAM of the LA was done again in sinus rhythm with excellent demarcation of LA myocardium and isolated antral tissue. There was only little scattered scar noted on the anterior wall.
The BEAU had healthy signals and was not isolated.
Procedure End
ICE study was done again that showed no epicardial accumulation. No complications noted.
Following the completion of the EP study, catheters were removed. Protamine 40 mg was given at the end of the procedure and ACT was checked repeatedly. The sheaths were removed and hemostasis achieved with �VASCADE� and manual compression after
acceptable ACT is achieved.
Left atrial Pressure:
Pre ablation: Mean LA pressure was 9mmHg
Post ablation: Mean LA pressure was 11 mmHg.
Post ablation: Mean RA pressure was 6 mmHg.
Estimated Blood loss:
<10 cc
Specimens Removed:
None.
Implants / Devices:
None
Urine output:
None
Packs / Drains/ Tubes:
None
Instrument / Sponge Count Correct:
Yes
Complications of the Procedure:
None
Condition of Patient at Time of Transfer:
Hemodynamically stable with no neurological or vascular compromise.
Summary:
Successful atrial fibrillation ablation with Pulsed Field approach for pulmonary vein isolation, roof dependent flutter ablation and posterior wall isolation. .
Figures from the Procedure:
Figure 1: The electroanatomic mapping (EAM) of the left atrium with bipolar voltage (purple indicates normal electrical activity with donis as no myocardial muscle electric activity indicating a line of block or scar.
--- NOTE | 2025-04-04 16:49 | W.PN.UPDATE ---
Update Note
Progress Note Update
Pt seen post PFA. Right groin site with Vascade closure, no ht/bleeding, oob ambulating, urinating without difficulty. Post EKG NSR 70s, no acute changes. Resume eliquis tonight. Followup at [facility] as scheduled. He did not get a PCP as instructed and
needs refills on all medications. 30 Rx with no refills for all cardiac meds and instructed to get more at the followup appointment in 3 weeks, and for diabetic meds/general medication needs will need to see a primary provider. Pt understands. Home
today if groin site/tele remain stable.
== END 2025-04-04 16:00 | disposition home or self-care (01) ==
LOC: CATH 08:12
PROVIDERS: ATTENDING PHYSICIAN Internal Medicine Cardiovascular Disease
DX: I48.19 Other persistent atrial fibrillation (principal); I48.92 Unspecified atrial flutter; I50.21 Acute systolic (congestive) heart failure; I42.8 Other cardiomyopathies; I34.0 Nonrheumatic mitral (valve) insufficiency; Z79.899 Other long term (current) drug therapy; Z79.84 Long term (current) use of oral hypoglycemic drugs
CPT/HCPCS: C1759; C1892; C1732; 36415; 80053; 82962; 85025; 85347; 86850; 86900; 86901; 93005; 93655; 93656; 93657; C1733; C1760; C1766

== ENCOUNTER → 2025-09-02 07:55 | Outpatient (REF) | payer BC, SELFPAY | LOC: HWRCS 07:55 | PROVIDERS: ATTENDING PHYSICIAN Internal Medicine Cardiovascular Disease; FAMILY PHYSICIAN Student in an Organized Health Care Education/Training Program | DX: I48.19 Other persistent atrial fibrillation (principal); I50.20 Unspecified systolic (congestive) heart failure | CPT/HCPCS: 78452; 93017; A9500; J2785 ==

== ENCOUNTER 2025-09-13 09:26 | Day surgery (SDC) | payer BC, SELFPAY | END 2025-09-13 11:33 | disposition home or self-care (01) | LOC: CATH 09:26 | PROVIDERS: ATTENDING PHYSICIAN Internal Medicine; FAMILY PHYSICIAN Student in an Organized Health Care Education/Training Program; OTHER PHYSICIAN Internal Medicine Cardiovascular Disease | DX: I48.4 Atypical atrial flutter (principal); I48.19 Other persistent atrial fibrillation; I50.22 Chronic systolic (congestive) heart failure; E11.9 Type 2 diabetes mellitus without complications | CPT/HCPCS: 92960; 93005 ==

== ENCOUNTER → 2025-09-27 07:50 | Outpatient (REF) | payer BC, SELFPAY | LOC: HWRCS 07:50 | PROVIDERS: ATTENDING PHYSICIAN Internal Medicine Cardiovascular Disease; FAMILY PHYSICIAN Student in an Organized Health Care Education/Training Program | DX: I48.19 Other persistent atrial fibrillation (principal); I50.20 Unspecified systolic (congestive) heart failure | CPT/HCPCS: 78452; 93017; A9500; J2785 ==

== ENCOUNTER → 2025-10-05 08:20 | Outpatient (REF) | payer BC, SELFPAY | LOC: RCS 08:20 | PROVIDERS: ATTENDING PHYSICIAN Internal Medicine Cardiovascular Disease; FAMILY PHYSICIAN Student in an Organized Health Care Education/Training Program | DX: I48.19 Other persistent atrial fibrillation (principal) | CPT/HCPCS: 93306 ==